=== PATIENT | male | born 1965 | race Caucasian/White ===

== ENCOUNTER → 2020-08-02 | Outpatient (CLI) | payer BC ==
[~2020-08-02] MED LIST: CEPH500C PO
--- NOTE | 2020-08-02 11:16 | Diagnostic Imaging Report ---
INDICATION: Left lower quadrant abdominal pain for 2 weeks. TIME OF EXAM: 10:40 AM The bowel gas pattern is nonobstructed. There is no free air. No pathologic calcifications are seen. IMPRESSION: No acute abnormality is detected. Dictated by: Dictated on workstation # [id number]
== END ==
LOC: RAD 10:14
PROVIDERS: ATTEND Family Medicine
DX: R10.32 Left lower quadrant pain (principal)
CPT/HCPCS: 74018

== ENCOUNTER → 2020-08-07 | Outpatient (CLI) | payer BC ==
[~2020-08-07] MED LIST changes: +FAMO10TA43 PO
--- NOTE | 2020-08-07 13:27 | Diagnostic Imaging Report ---
PROCEDURE: CT abdomen and pelvis without contrast. TECHNIQUE: Multiple contiguous axial images were obtained through the abdomen and pelvis without the use of intravenous contrast. Auto Exposure Controls were utilized during the CT exam to meet ALARA standards for radiation dose reduction. INDICATION: Left lower quadrant mass and pain. COMPARISON: No prior studies are available for comparison. FINDINGS: The lung bases are clear. The liver and gallbladder are unremarkable. No biliary ductal dilatation is seen. The pancreas and spleen are unremarkable. No adrenal mass is detected. Patient does have a pelvic right kidney which is unremarkable. Left kidney contains a low-density mass in the lower pole measuring 4.3 cm suggestive of a cyst. Aorta is nonaneurysmal. No central retroperitoneal or mesenteric lymphadenopathy is seen. There is marked wall thickening involving the left colon with surrounding pericolonic inflammation. A left colonic mass is suspected, resulting in significant luminal narrowing. No bowel obstruction is seen. Small bowel is normal caliber. Sigmoid is unremarkable. The bladder is unremarkable. Prostate is normal in size. No pelvic lymphadenopathy is seen. IMPRESSION: 1. Left renal cyst. 2. There is marked wall thickening and probable mass involving the mid descending colon. There is some surrounding inflammation and some underlying colitis is suspected. There is no bowel obstruction. There is no abscess formation or free air. Correlation with endoscopy would be recommended. Dictated by: Dictated on workstation # [id number]
== END ==
LOC: RAD 11:41
PROVIDERS: ATTEND Family Medicine
DX: N28.1 Cyst of kidney, acquired (principal); R19.04 Left lower quadrant abdominal swelling, mass and lump
CPT/HCPCS: 74176

== ENCOUNTER 2020-08-09 09:54 | Outpatient (CLI) | payer BC ==
[~2020-08-09] VITALS: Ht 195.6 cm; Wt 119.5 kg
[~2020-08-09 09:54] MED LIST changes: -FAMO10TA43 PO
[2020-08-09] MEDS ORDERED: FAMO10TA43 PO (11:10)
== END 2020-08-09 11:11 | disposition home or self-care (01) ==
LOC: PREOP 09:54
PROVIDERS: ATTEND Surgery
DX: Z01.818 Encounter for other preprocedural examination (principal)

== ENCOUNTER 2020-08-10 09:51 | Day surgery (SDC) | payer BC ==
[~2020-08-10] VITALS: Ht 195.6 cm; Wt 119.5 kg
[~2020-08-10 09:51] MED LIST changes: +FAMO10TA43 PO
[2020-08-10] MEDS ORDERED: LACTATED RINGERS 1,000 ML IV STA (09:55)
[2020-08-10] MEDS ORDERED: LACTATED RINGERS 1,000 ML IV ONE (09:57)
[2020-08-10 10:10] VITALS: BP 155/94
[2020-08-10] MEDS ORDERED: MIDAZOLAM 2 MG/2 ML (VERSED) VIAL ONE (10:24)
[2020-08-10] MEDS ORDERED: PROPOFOL INJECTION 50 ML IV ONE (10:24)
--- NOTE | 2020-08-10 10:30 | Progress Note-Pre Operative ---
Pre-Operative Progress Note H&P Reviewed The H&P was reviewed, patient examined and no changes noted. Date Seen by Provider: Aug 10, 2020 Time Seen by Provider: 10: Date H&P Reviewed: Aug 10, 2020 Time H&P Reviewed: 10:30 Pre-Operative Diagnosis: LLQ abd pain, llq mass BENJI SAINI DO Aug 10, 2020 10:30
[2020-08-10 10:50] VITALS: BP 120/60
[2020-08-10 10:55] VITALS: BP 96/60
[2020-08-10 11:00] VITALS: BP 121/58
--- NOTE | 2020-08-10 11:05 | Discharge Inst-Simple/Standard ---
Discharge Inst-Standard Patient Instructions/Follow Up Plan of Care/Instructions/FU: Friday Alfie Activity as Tolerated: Yes Discharge Diet: Regular Diet BNEJI SAINI DO Aug 10, 2020 11:05
--- NOTE | 2020-08-10 11:07 | Progress Note-Post Operative ---
Post-Operative Progess Note Surgeon (s)/Coal Pulverizing Operator (s) Surgeon BENJI SAINI DO Coal Pulverizing Operator: na Pre-Operative Diagnosis LLQ abd pain, llq mass Post-Operative Diagnosis descending colon mass, sigmoid polyp Procedure & Operative Findings Date of Procedure 08/10/20 Procedure Performed/Findings limited colonoscopy with biopsy descending colon mass, marissa inking distal to mass, hot bx polypectomy sigmoid polyp Anesthesia Type per counter manager Estimated Blood Loss Estimated blood loss (mL): scant Specimens/Packing Specimens Removed colon mass biopsies, sigmoid polyp BENJI SAINI DO Aug 10, 2020 11:07
[2020-08-10 11:25] VITALS: BP 167/109
[2020-08-10 11:35] VITALS: BP 167/109
--- NOTE | 2020-08-10 15:16 | Anesthesia-General Post-Op ---
MAC Patient Condition Mental Status/LOC: Same as Preop Cardiovascular: Satisfactory Nausea/Vomiting: Absent Respiratory: Satisfactory Pain: Controlled Complications: Absent Post Op Complications Complications None Follow Up Care/Instructions Patient Instructions None needed. Anesthesiology Discharge Order Discharge Order Patient is doing well, no complaints, stable vital signs, no apparent adverse anesthesia problems. No complications reported per nursing. RAMON MCCANN CRNA Aug 10, 2020 15:16
--- NOTE | 2020-08-11 02:20 | OPERATIVE REPORT ---
DATE OF SERVICE: 08/10/2020 PREOPERATIVE DIAGNOSIS: Left lower quadrant mass, left lower quadrant abdominal pain. POSTOPERATIVE DIAGNOSIS: Descending colon mass, sigmoid colon polyp. PROCEDURE: Limited colonoscopy with cold biopsy of the ascending colon mass with Jaclyn inking and hot biopsy polypectomy of sigmoid polyp. SURGEON: Benji Judge DO ANESTHESIA: Per WIND TUNNEL TECHNICIAN. ESTIMATED BLOOD LOSS: Scant. COMPLICATIONS: None. INDICATIONS: The patient is a 54-year-old male who has been having left lower quadrant abdominal pain. He had a CT scan demonstrating descending colon mass. He understands risks and benefits of procedure and wished to proceed with procedure. Consent was signed in the chart. DESCRIPTION OF PROCEDURE: The patient was taken to the endoscopy suite, placed in left lateral recumbent position. Timeout was performed. Digital rectal exam was performed. No palpable polyps, masses or ulcerations. Scope was inserted in the rectum and advanced all the way through the rectum, sigmoid and into the descending colon noting an almost obstructing mass of the colon. Scope was then able to be passed through this area. Multiple cold biopsies were obtained. Just distal to this area, 2 mL of Jaclyn ink were inserted into the colon wall for marking. Scope was then slowly retracted back. No polyps, masses or ulcerations within the remainder of the descending colon. In the sigmoid colon, a small polyp was present, which hot biopsy polypectomy was performed. Scope was then continuously retracted back into the rectum where it was also retroflexed noting no other pathology. The patient tolerated procedure well without any complications, taken to recovery room in stable condition. RECOMMENDATIONS: The patient will need a colon resection. We will await biopsies and we will see on Friday. Any issues before that will be seen at that time. Job ID: [id number] DocumentID: [id number] Dictated Date: 08/10/2020 15:22:46 Supervisor Building Maintenance Date: 08/11/2020 02:19:58 Dictated By: BENJI JUDGE DO
== END 2020-08-10 11:35 | disposition home or self-care (01) ==
LOC: SDC 09:51
PROVIDERS: ATTEND Surgery
DX: K63.5 Polyp of colon (principal); C18.6 Malignant neoplasm of descending colon; K21.9 Gastro-esophageal reflux disease without esophagitis; E66.9 Obesity, unspecified; Z68.31 Body mass index [BMI] 31.0-31.9, adult; Z79.899 Other long term (current) drug therapy; Z88.2 Allergy status to sulfonamides; Z87.891 Personal history of nicotine dependence; Z80.9 Family history of malignant neoplasm, unspecified

== ENCOUNTER 2020-08-14 09:58 | Outpatient (CLI) | payer BC ==
[~2020-08-14] VITALS: Ht 195 cm; Wt 119.0 kg
[~2020-08-14 09:58] MED LIST changes: -DIPH25TA65 PO; -IBUP-2473 PO; -MULT-1136 PO
== END 2020-08-14 14:35 | disposition home or self-care (01) ==
LOC: PREOP 09:58
PROVIDERS: ATTEND Surgery
DX: Z01.818 Encounter for other preprocedural examination (principal)

== ENCOUNTER → 2020-08-14 | Outpatient (CLI) | payer BC ==
[~2020-08-14] MED LIST changes: +DIPH25TA65 PO; +IBUP-2473 PO; +MULT-1136 PO
--- NOTE | 2020-08-14 10:55 | Diagnostic Imaging Report ---
INDICATION: Preop for colon surgery. Time of exam 10:29 AM No prior studies are available for comparison. The heart size is normal. The pulmonary vascularity is unremarkable. The lungs are clear. No infiltrate, effusion or pneumothorax is detected. Impression: No acute cardiopulmonary process is detected. Dictated by: Dictated on workstation # [id number]
== END ==
LOC: RAD 09:51
PROVIDERS: ATTEND Surgery
DX: Z01.818 Encounter for other preprocedural examination (principal); C18.9 Malignant neoplasm of colon, unspecified
CPT/HCPCS: 36415; 71046; 82378

== ENCOUNTER 2020-08-16 06:01 | Inpatient (IN) | payer BC ==
[~2020-08-16] VITALS: Ht 195 cm; Wt 119.8 kg
[2020-08-16] VITALS (12 sets, daily range): BP systolic 113–145; BP diastolic 70–87
[2020-08-16] MEDS ORDERED: metroNIDAZOLE 500MG/100ML IVPB 100 ML IV ONE (06:15)
[2020-08-16] MEDS ORDERED: ceFAZolin 2 GM IV Premixed 50 ML IV ONE (06:15)
[2020-08-16] MEDS: LACTATED RINGERS 1,000 ML IV PRN ×3 (06:30→10:01)
[2020-08-16 06:44] LABS: BASOPHILS # (AUTO) 0.1 10^3/uL (0.0-0.1); BASOPHILS % (AUTO) 1 % (0-10); EOSINOPHILS % (AUTO) 11 % (0-10); HEMATOCRIT 45 % (40-54); HEMOGLOBIN 14.2 g/dL (13.3-17.7); LYMPHOCYTES # (AUTO) 1.3 10^3/uL (1.0-4.0); LYMPHOCYTES % (AUTO) 14 % (12-44); MEAN CORPUSCULAR HEMOGLOBIN 26 pg (25-34); MEAN CORPUSCULAR HGB CONC 32 g/dL (32-36); MEAN CORPUSCULAR VOLUME 82 fL (80-99); MEAN PLATELET VOLUME 8.7 fL (9.0-12.2); MONOCYTES # (AUTO) 0.7 10^3/uL (0.0-1.0); MONOCYTES % (AUTO) 7 % (0-12); NEUTROPHILS # (AUTO) 6.2 10^3/uL (1.8-7.8); NEUTROPHILS % (AUTO) 67 % (42-75); PLATELET COUNT 351 10^3/uL (130-400); WHITE BLOOD COUNT 9.3 10^3/uL (4.3-11.0)
[2020-08-16] MEDS ORDERED: BUP/EPI 0.25% 1:200,000 (MARCAINE) 30 ML VIAL ONE (07:20)
[2020-08-16] MEDS ORDERED: fentaNYL INJECTION 100 MCG/2 ML AMP ONE ×2 (07:26→09:38)
[2020-08-16] MEDS ORDERED: metroNIDAZOLE 500MG/100ML IVPB 100 ML ONE (07:26)
[2020-08-16] MEDS ORDERED: proPOfol 200 MG/20 ML (DIPRIVAN) VIAL IV ONE (07:26)
[2020-08-16] MEDS ORDERED: LIDOCAINE PF 2% 5 ML (XYLOCAINE) VIAL ONE (07:26)
[2020-08-16] MEDS ORDERED: MIDAZOLAM 2 MG/2 ML (VERSED) VIAL ONE (07:26)
[2020-08-16] MEDS ORDERED: ceFAZolin 2 GM IV Premixed 50 ML ONE (07:26)
[2020-08-16] MEDS ORDERED: ONDANSETRON 4 MG/2 ML (SDV) Z0FRAN ONE ×2 (07:27→13:06)
[2020-08-16] MEDS ORDERED: SEVOFLURANE (ULTANE) 15 ML INHAL SOLN ONE (07:27)
[2020-08-16] MEDS ORDERED: ROCURONIUM 10 MG/ML 5 ML SYRINGE IV ONE ×5 (07:27→11:28)
[2020-08-16] MEDS ORDERED: CATHETER FLUSH 10 ML SYR IV PRN (07:30)
[2020-08-16] MEDS ORDERED: HYDROmorphone 2 MG/ML VIAL (DILAUDID) ONE ×2 (08:11→11:28)
--- NOTE | 2020-08-16 08:13 | Progress Note-Pre Operative ---
Pre-Operative Progress Note H&P Reviewed The H&P was reviewed, patient examined and no changes noted. Date Seen by Provider: Aug 16, 2020 Time Seen by Provider: 07:40 Date H&P Reviewed: Aug 16, 2020 Time H&P Reviewed: 07:40 Pre-Operative Diagnosis: descending colon cancer BENJI SAINI DO Aug 16, 2020 08:13
[2020-08-16] MEDS ORDERED: LEVOFLOXACIN 500 MG/100 ML IV 100 ML ONE (10:52)
[2020-08-16] MEDS ORDERED: LEVOFLOXACIN 500 MG/100 ML IV 100 ML IV ONE (11:00)
[2020-08-16] MEDS ORDERED: ROPIVACAINE 5MG/ML 30ML VIAL ONE (11:30)
[2020-08-16] MEDS ORDERED: GLYCOPYRROLATE 0.2 MG/ML (ROBINUL) 2 ML VIAL ONE (11:48)
[2020-08-16] MEDS ORDERED: NEOSTIGMINE 3 MG/3 ML VIAL ONE (11:48)
[2020-08-16] MEDS ORDERED: meTOprolol 5 MG/5 ML (LOPRESSOR) VIAL ONE (12:14)
--- NOTE | 2020-08-16 12:19 | Progress Note-Post Operative ---
Post-Operative Progess Note Surgeon (s)/Lodging Facilities Manager (s) Surgeon BENJI SAINI DO Lodging Facilities Manager: Dr. Lama Pre-Operative Diagnosis descending colon cancer Post-Operative Diagnosis same, colon cancer extentding into retroperitoneum Procedure & Operative Findings Date of Procedure 08/16/20 Procedure Performed/Findings lap hand assisted to open descending colon flexure with end to end anastamosis with excision of retroperitoneal extension of colon cancer, splenic flexure take down Anesthesia Type general Estimated Blood Loss Estimated blood loss (mL): 200 mL Specimens/Packing Specimens Removed descending colon, retroperitoneal colon cancer, anastomotic rings BENJI SAINI DO Aug 16, 2020 12:19
[2020-08-16] MEDS ORDERED: HYDROmorphone 2 MG/ML VIAL (DILAUDID) IV ONE (12:30)
[2020-08-16] MEDS ORDERED: ONDANSETRON 4 MG/2 ML (SDV) Z0FRAN IVP PRN (12:30)
--- NOTE | 2020-08-16 13:20 | NUR ---
PATIENT TO FLOOR AT THIS TIME VIA CART. IN ROOM WAITING AT BESIDE OF THIS PATIENT. MIDLINE INCISION HAS MODERATE AMOUNT OF DRAINAGE WITH THAT AREA MARKED BY THIS RN. ICE TO MIDLINE INCISION. X1 LAP SITE TO THE LEFT LOWER QUADRANT THAT IS COVERED WITH OPSITE AND DRAINAGE MARKED ALSO BY THIS RN.
[2020-08-16] MEDS: LACTATED RINGERS 1,000 ML IV SCH ×2 (13:49→21:08)
--- NOTE | 2020-08-16 15:22 | Physical Therapy Evaluation ---
PT Evaluation-General Medical Diagnosis Admission Date Aug 16, 2020 at 06:01 Medical Diagnosis: Descending colon cancer Onset Date: Aug 16, 2020 Therapy Diagnosis Therapy Diagnosis: Impaired mobility, ROM, and strength Height/Weight Height (Feet): 6 Height (Inches): 0 Weight (Pounds): 230 Precautions Precautions/Isolations: Standard Precautions Weight Bear Status Weight Bearing/Tolerated Weight Bearing/Tolerated Referral Physician: Kelby Reason for Referral: Evaluation/Treatment Medical History Additional Medical History Descending colon cancer Social History Home: Single Level Current Living Status: Spouse Entry Into Home: Stairs With Railing PT Steps Into Home: 4 Prior Prior Level of Function SCALE: Activities may be completed with or without assistive devices. 6-Klzhdfwqrh-yhunyuj completes the activity by him/herself with no assistance from a helper. 5-Set-up or Clean-up Assistance-helper sets up or cleans up; patient completes activity. Bloomery assists only prior to or following the activity. 4-Supervision or Touching Assistance-helper provides verbal cues and/or touching/steadying and/or contact guard assistance as patient completes activity. Assistance may be provided throughout the activity or intermittently. 3-Partial/Moderate Assistance-helper does LESS THAN HALF the effort. Bloomery lifts, holds or supports trunk or limbs, but provides less than half the effort. 2-Substantial/Maximal Assistance-helper does MORE THAN HALF the effort. Bloomery lifts or holds trunk or limbs and provides more than half the effort. 1-Jognifilc-kodnyp does ALL the effort. Patient does none of the effort to complete the activity. Or, the assistance of 2 or more helpers is required for the patient to complete the activity. If activity was not attempted, code reason: 7-Patient Refused. 9-Not Applicable-not attempted and the patient did not perform the activity before the current illness, exacerbation or injury. 10-Not Attempted due to Environmental Limitations-(lack of equipment, weather restraints, etc.). 88-Not Attempted due to Medical Conditions or Safety Concerns. Bed Mobility: 6 Transfers (B,C,W/C): 6 Gait: 6 Stairs: 6 Wheelchair Mobility: 9 Indoor Mobility (Ambulation): Independent Stairs: Independent Prior Devices Use: None PT Evaluation-Current Subjective Pt presents supine in bed. Pt agrees to PT. Pt has unrated pain in his abdomen. Pt/Family Goals Return Home Objective Patient Orientation: Person, Place, Eyes Open Attachments: Jansen Catheter, IV ROM/Strength ROM Lower Extremities WFL Strength Lower Extremities R Hip flex: 4/5 with increased abdominal pain L Hip flex: 5/5 B knee flex/ext: 5/5 Sensory Hearing: Functional Sensation Right Lower Extremit: Intact Sensation Left Lower Extremity: Intact Sensation Lower Extremities B LE sensation intact to light touch L2-S2 Transfers Roll Left to Right (QC): 4 Sit to Lying (QC): 4 Lying to Sitting/Side of Bed(Q: 4 Pt educated on log-roll Balance Sitting Static: Normal Sitting Dynamic: Normal Treatment B ankle pumps, SLR, quad sets, glute sets x20 Assessment/Needs Pt required cues on how to sit on edge of bed using log-roll technique to minimize abdominal irritation. Pt able to balance self sitting upright with UEs supporting trunk by locking elbows behind him. Pt began feeling dizzy sitting up after a couple minutes and returned to supine. Rehab Potential: Fair PT Snf Goals Snf Goals PT Information Security Officer Goals Time Frame: Aug 23, 2020 Roll Left & Right (QC): 6 Sit to Lying (QC): 6 Lying-Sitting on Side/Bed(QC): 6 Sit to Stand (QC): 6 Chair/Gsr-oe-Ngtni Xfer(QC): 6 Walk 10 feet (QC): 6 Walk 50ft with 2 Turns (QC): 6 Walk 150 ft (QC): 6 PT Plan Problem List Problem List: Activity Tolerance, Functional Strength, Safety, Balance, Gait, Transfer, Bed Mobility, ROM Treatment/Plan Treatment Plan: Continue Plan of Care Treatment Plan: Bed Mobility, Education, Functional Activity Jose, Functional Strength, Gait, Safety, Therapeutic Exercise, Transfers Treatment Duration: Aug 23, 2020 Frequency: 6 times per week Estimated Hrs Per Day: .25 hour per day Patient and/or Family Agrees t: Yes Safety Risks/Education Patient Education: Transfer Techniques, Correct Positioning, Safety Issues Teaching Recipient: Patient Teaching Methods: Demonstration, Discussion Response to Teaching: Reinforcement Needed Discharge Recommendations Plan Plan to work with patient on bed mobility, transfers, balance, gait training, LE strengthening and ROM. Time/GCodes Time In: 1450 Time Out: 1511 Total Billed Treatment Time: 21 Total Billed Treatment 1 visit EVBERNARDA CARRASQUILLO PT Aug 16, 2020 15:22
[2020-08-16] MEDS ORDERED: DIPH25TA65 PO (15:31)
[2020-08-16] MEDS ORDERED: IBUP-2473 PO (15:31)
[2020-08-16] MEDS ORDERED: MULT-1136 PO (15:31)
--- NOTE | 2020-08-16 15:33 | NUR ---
SPOKE WITH THE PT TO COMPLETE THE MED REC PT DENIES TAKING ANY PRESCRIPTION MEDICATION OTC MEDS: PEPCID IBUPROFEN LYUBOV HOUGH
[2020-08-16] MEDS ORDERED: RT-ALBUTEROL SULF 2.5 MG/3 ML PRE-MIX VIAL INH PRN (16:00)
--- NOTE | 2020-08-16 16:06 | NUR ---
DR. DUPONT HERE AT THIS TIME TO CONSULT WITH PATIENT.
[2020-08-16] MEDS: ceFAZolin 2 GM IV Premixed 50 ML IV SCH (16:14)
[2020-08-16] MEDS: metroNIDAZOLE 500MG/100ML IVPB 100 ML IV SCH (16:14)
--- NOTE | 2020-08-16 16:46 | Consultation ---
History of Present Illness History of Present Illness Patient Consulted On(dada/time) 08/16/20 16:43 Date Seen by Provider: Aug 16, 2020 Time Seen by Provider: 16:40 Reason for Visit: medical management History of Present Illness 54-year-old male recently presented to my office for wellness examination at that time history revealed that he had some change of his bowel habits. He was noted to have narrow stools as well as having discomfort in the lower abdomen. He was also noted to have a firm 10 x 15 cm area in the left lower quadrant. He was arranged to have colonoscopy with Dr. Judge and ultimately found to have adenocarcinoma by biopsy. Today he underwent surgical excision of the tumor Allergies and Home Medications Allergies Coded Allergies: Sulfa (Sulfonamide Antibiotics) (Verified Allergy, Mild, HIVES, 08/16/20) Home Medications Diphenhydramine HCl 25 Mg Tablet, 25-50 MG PO Q6H PRN for ALLERGY SYMPTOMS, (Reported) Famotidine 10 Mg Tablet, 10 MG PO DAILY PRN for HEARTBURN, (Reported) Ibuprofen 200 Mg Tablet, 400 MG PO Q8H PRN for PAIN-MILD (1-4), (Reported) Multivitamin 1 Each Tablet, 1 EACH PO DAILY, (Reported) Patient Home Medication List Home Medication List Reviewed: Yes Past Rlxdaoh-Rrlgcv-Dtghsx Hx Patient Social History Alcohol Use: Denies Use Number of Drinks Today: FF Alcohol Beverage of Choice: Vodka Recreational Drug Use: No Type Used: Smokeless Tobacco Former Smoker, Quit: Aug 09, 1998 2nd Hand Smoke Exposure: No Recent Foreign Travel: No Contact w/Someone Who Travel: No Recent Infectious Disease Expo: No Recent Hopitalizations: No Immunizations Up To Date Tetanus Booster (TDap): Less than 5yrs PED Vaccines UTD: No Seasonal Allergies Seasonal Allergies: Yes Past Medical History Surgeries: Yes Appendectomy Respiratory: No Currently Using CPAP: No Currently Using BIPAP: No Cardiac: No Neurological: No Reproductive Disorders: No Sexually Transmitted Disease: No Genitourinary: No Gastrointestinal: Yes (abd pain) Gastroesophageal Reflux Musculoskeletal: No Endocrine: No HEENT: No Cancer: No Psychosocial: No Integumentary: No Blood Disorders: No Adverse Reaction/Blood Tranf: No (N/A) Family Medical History Patient reports no known family medical history. Review of Systems-General Constitutional: see HPI Physical Exam-General Problems Physical Exam Vital Signs Vital Signs - First Documented 08/16/20 08/16/20 06:15 14:17 Temp 36.2 Pulse 99 Resp 18 B/P (MAP) 145/87 (106) Pulse Ox 97 O2 Delivery Room Air FiO2 32 Capillary Refill : Less Than 3 Seconds General Appearance: mild distress (but he is with pain medications on board after surgery) Neck: non-tender Respiratory: lungs clear (but shallow breaths) Cardiovascular: regular rate, rhythm Gastrointestinal: soft, other (he is with surgical dressings in place) Rectal: deferred Extremities: normal inspection, normal capillary refill Neurologic/Psychiatric: parks recreation coordinator II-XII nml as tested, alert, oriented x 3 Skin: normal color (although he is slightly pale) Assessment/Plan Assessment/Plan Admission Diagnosis/Plan 1. 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 Dyspepsia history of -PPI as indicated Admission Status: Inpatient Order (span 2 midnights) Reason for Inpatient Admission: patient underwent surgical excision of tumor by Dr. Judge today. Clinical Quality Measures DVT/VTE Risk/Contraindication: Risk Factor Score Per Nursin RFS Level Per Nursing on Admit: 4+=Very High GABY LOBO MD Aug 16, 2020 16:46
--- NOTE | 2020-08-16 17:21 | Oncology Consultation ---
Visit Information Visit Information Date of Admission Aug 16, 2020 at 06:01 Attending Physician Stefan Judge DO Admitting Physician Herrera Ledbetter MD Chief Complaint Newly diagnosed colon cancer Interval History Mr. Chen is a 54 year old white man presented to his PCP Dr. Ledbetter for bowel change and lower abdominal pain. Dr Judge did a colonoscopy with biopsy which showed adenocarcinoma. CT scan was negative for remote mets 08/07/2020. Dr Judge did a left hemicolectomy today and noticed retroperitoneal lymph nodes involvement. Pt is now recovering from the surgical procedure. I consulted the patient on: 08/16/20 17:15 Time Seen by Provider: 15:50 Review of Systems Constitutional: no symptoms reported EENTM: no symptoms reported Respiratory: no symptoms reported Cardiovascular: no symptoms reported Gastrointestinal: abdominal pain Musculoskeletal: no symptoms reported Psychiatric/Neurological: No Symptoms Reported Health Status Allergies Coded Allergies: Sulfa (Sulfonamide Antibiotics) (Verified Allergy, Mild, HIVES, 08/16/20) Home Medications Diphenhydramine HCl (Benadryl Allergy) 25 Mg Tablet, 25-50 MG PO Q6H PRN for ALLERGY SYMPTOMS, (Reported) Famotidine (Pepcid AC) 10 Mg Tablet, 10 MG PO DAILY PRN for HEARTBURN, (Reported) Ibuprofen (Ibuprofen) 200 Mg Tablet, 400 MG PO Q8H PRN for PAIN-MILD (1-4), (Reported) Multivitamin (Multivitamin) 1 Each Tablet, 1 EACH PO DAILY, (Reported) IXY-Swphcf-Kwqnzh Hx Patient Social History Alcohol Use: Denies Use Recreational Drug Use: No Type Used: Smokeless Tobacco 2nd Hand Smoke Exposure: No Recent Foreign Travel: No Contact w/other who traveled: No Recent Infectious Disease Expo: No Recent Hopitalizations: No Physical Abuse Screen: No Sexual Abuse: No Immunizations Up To Date Tetanus Booster (TDap): Less than 5yrs Family Medical History Family History: Patient reports no known family medical history. Physical Exam Vital Signs Vital Signs - First Documented 08/16/20 08/16/20 06:15 14:17 Temp 36.2 Pulse 99 Resp 18 B/P (MAP) 145/87 (106) Pulse Ox 97 O2 Delivery Room Air FiO2 32 Capillary Refill : Less Than 3 Seconds Height, Weight, BMI Height: 6'0" Weight: 230lbs. oz. 104.860333ht; 31.29 BMI Method:Stated General Appearance: No Apparent Distress HEENT: PERRL/EOMI Respiratory: No Accessory Muscle Use, No Respiratory Distress Cardiovascular: Regular Rate, Rhythm Gastrointestinal: Distended, Tenderness Neurologic/Psychiatric: Alert, Oriented x3 Data Review Labs Laboratory Tests 08/16/20 06:30 Laboratory Tests 08/16/20 06:30: Red Cell Distribution Width 15.5H, Mean Platelet Volume 8.7L, Eosinophils (%) (Auto) 11H, Eosinophils # (Auto) 1.0H Impression & Plan Impression & Plan IMP: 1. 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 Final path pending. 2. CT 08/07/2020 showed no remote mets. Most likely stage II or III. Most likely needing chemotherapy. Plan: 1. f/u final pathology to determine the lymph node involvement 2. Pt needs to recover and heal from the surgery 3. See me in 3 weeks at the cancer center to discuss the final staging and treatment options. I have given him the appointment card with date and time. Will sign off now. Thank you for the consultation. POLLY DUPONT MD Aug 16, 2020 17:21
--- NOTE | 2020-08-16 20:32 | OPERATIVE REPORT ---
DATE OF SERVICE: 08/16/2020 PREOPERATIVE DIAGNOSIS: Colon cancer. POSTOPERATIVE DIAGNOSIS: Colon cancer. OPERATION PERFORMED: Cystoscopy and insertion of left ureteral stent. SURGEON: Braxton Clinton MD. ANESTHESIA: General. COMPLICATIONS: None. DESCRIPTION OF PROCEDURE: I was asked by Dr. Judge to come into the operating room and put in a stent in the left ureter because of its proximity to an eroding cancer colon and fear of injuring the ureter and help identification of it, so the patient was put in the lithotomy position, genitalia were prepped and draped in the usual sterile fashion. Cystoscopy was performed and the left ureteral orifice was visualized. A 6-Singaporean ureteral catheter was inserted and passed all the way up to the kidney with recovery of clear urine from it. The cystoscope was removed. A Jansen catheter was inserted and both catheters were connected with appropriate connections and then Dr. Judge and Dr. Lama proceeded with the rest of the surgery that they will dictate. I told Dr. Judge that I will stick around in the hospital in case he needs me again for any other reasons related to the ureter. Job ID: [id number] DocumentID: [id number] Dictated Date: 08/16/2020 11:39:57 Psychiatric Nursing Aide Date: 08/16/2020 15:45:57 Dictated By: BRAXTON CLINTON MD
[2020-08-16] MEDS: morphine INJ 10 MG/ML 1ML (SYR OR VIAL) IVP PRN (21:08)
[2020-08-17 00:39] VITALS: BP 112/61
[2020-08-17] MEDS: ceFAZolin 2 GM IV Premixed 50 ML IV SCH (01:55)
[2020-08-17] MEDS: metroNIDAZOLE 500MG/100ML IVPB 100 ML IV SCH (01:55)
[2020-08-17] MEDS: morphine INJ 10 MG/ML 1ML (SYR OR VIAL) IVP PRN ×4 (02:54→14:05)
--- NOTE | 2020-08-17 03:13 | OPERATIVE REPORT ---
DATE OF SERVICE: 08/16/2020 PREOPERATIVE DIAGNOSIS: Descending colon cancer. 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 PROCEDURE: Laparoscopic hand-assisted converted to open descending colon resection with end-to-end anastomosis and retroperitoneal colon cancer excision and splenic flexure takedown. SURGEON: Benji Judge DO STATOR TESTER: Dr. Lama, assisted in retraction, dissection and closure. Dr. Beckett, see his dictation for left ureteral catheter. ANESTHESIA: General. ESTIMATED BLOOD LOSS: 200 mL. COMPLICATIONS: None. INDICATIONS: The patient is a 54-year-old male who was having left lower quadrant abdominal pain, found to have a mass by CT scan. A colonoscopy was performed, which found a descending colon mass that was almost completely obstructing, the scope was unable to be passed through this area. The mass was biopsied, which demonstrated colon cancer. The patient was explained risks and benefits of procedure and wished to proceed. Consent was signed in the chart. DESCRIPTION OF PROCEDURE: The patient was taken to the operating suite, was prepped and draped in sterile fashion. Timeout was performed. A midline incision was made for the hand port around the umbilicus and a 12 mm incision was made in the subxiphoid region and a 12 mm trocar was placed. The abdomen was then insufflated after the hand port was placed. Under direct visualization, a 5 mm trocar was placed in left lower quadrant. The mass was visualized. There were some adhesions at the mass to the abdominal wall, which were transected using a spatula cautery. Distal to the mass, the colon was then mobilized along the white line of Toldt. Mass was hard, firm mass, which was extremely adherent to the left gutter, so dissection on the proximal side was then continued on the part of the colon that was movable. The colon was mobilized along the white line of Toldt and the splenic flexure was taken down as well. Attention was then made to where the colon mass was extremely adherent to the left gutter, which was unable to be mobilized laparoscopically therefore then the procedure was converted to an open procedure. The distal to the mass, the colon was dissected around and a LESLYE stapler was fired. Proximal to the mass the colon was dissected around and a LESLYE staple reload was then fired across. LigaSure was then used to start taking the mesentery; however, the mass was significantly fixed to the left gutter and retroperitoneum and the mesentery was felt to be hard as this mass was moving down into this area or significant phlegmon around it. Therefore, the colon was continued to be both bluntly and cautery dissection. In doing so, part of the mass and the colon were divided with finger fracturing and the specimen was removed. Where the mass was, there was extension into the retroperitoneum. Due to this going into the retroperitoneal space, Dr. Beckett came in and placed a left ureteral catheter. The retroperitoneum was then opened and the mass was continued to be slowly dissected around with Hoffman and cautery, removing this en bloc. Specimen was labeled on the colon. The stitches on the proximal portion with the tattooing being distal. The retroperitoneal mass was tagged and oriented as well. The abdomen was then irrigated with copious amounts of irrigation. Hemostasis was achieved. A pursestring suture was then fired across the distal portion of the colon and a 31 EEA stapler anvil was inserted. This was then tied and through the proximal transected portion of the colon this was opened and the EEA stapler was inserted and opened and the end-to-end anastomosis was created through the opening. The opening was then closed with the linear stapler reload. The suture line was oversewn with 3-0 Vicryls. The abdomen was then irrigated with copious amounts of irrigation and suction. The fascia was then closed using 1-0 looped PDS. The abdominal wound was then irrigated and skin was then closed with veronica. The left ureteral catheter was removed. The patient tolerated procedure well without any complications. He was taken to recovery room in stable condition. Job ID: [id number] DocumentID: [id number] Dictated Date: 08/16/2020 23:01:24 Volunteer Assistant Date: 08/17/2020 03:12:35 Dictated By: BENJI JUDGE DO
[2020-08-17 03:53] VITALS: BP 127/76
[2020-08-17 04:56] LABS: HEMOGLOBIN 12.6 g/dL (13.3-17.7); MEAN PLATELET VOLUME 8.9 fL (9.0-12.2); WHITE BLOOD COUNT 10.6 10^3/uL (4.3-11.0)
[2020-08-17 05:23] LABS: ALBUMIN 3.2 GM/DL (3.2-4.5); CHLORIDE 105 MMOL/L (98-107); POTASSIUM 4.4 MMOL/L (3.6-5.0); SODIUM 142 MMOL/L (135-145)
[2020-08-17 05:24] LABS: CALCIUM 8.6 MG/DL (8.5-10.1)
[2020-08-17 05:25] LABS: GLUCOSE 147 MG/DL (70-105)
[2020-08-17 05:26] LABS: TOTAL PROTEIN 5.9 GM/DL (6.4-8.2)
[2020-08-17 05:27] LABS: BILIRUBIN,TOTAL 0.5 MG/DL (0.1-1.0); CARBON DIOXIDE 26 MMOL/L (21-32)
[2020-08-17 05:29] LABS: ALKALINE PHOSPHATASE 46 U/L (40-136); CREATININE SERUM 0.93 MG/DL (0.60-1.30); GFR ESTIMATED > 60
[2020-08-17 05:30] LABS: BUN/CREATININE RATIO 8
[2020-08-17 05:32] LABS: ALANINE AMINOTRANSFERASE 13 U/L (0-55); MAGNESIUM 1.7 MG/DL (1.6-2.4)
[2020-08-17] MEDS: LACTATED RINGERS 1,000 ML IV SCH ×3 (06:21→20:39)
--- NOTE | 2020-08-17 06:40 | Progress Note ---
Subjective Date Seen by a Provider: Aug 17, 2020 Time Seen by a Provider: 06:50 Subjective/Events-last exam Patient awake upon entering room and appears to be in no distress. He reports still fairly tender with regards to abdomen. He is without any respiratory distress or cough. Objective Exam Vital Signs Date Time Temp Pulse Resp B/P (MAP) Pulse Ox O2 Delivery O2 Flow Rate FiO2 08/17/20 03:53 36.7 87 16 127/76 (93) 96 Room Air 08/16/20 21:00 Room Air 08/16/20 20:46 Nasal Cannula 3.00 08/16/20 20:00 37.0 83 16 136/73 (94) 98 Room Air 08/16/20 15:57 36.2 96 22 122/71 (88) 96 Room Air 08/16/20 14:30 36.1 99 16 135/84 (101) 95 Room Air 08/16/20 14:23 95 Nasal Cannula 3.00 08/16/20 14:17 36.1 91 95 32 08/16/20 13:20 Nasal Cannula 3 08/16/20 13:20 95 Nasal Cannula 3.00 08/16/20 13:20 36.1 24 128/72 (90) 96 Nasal Cannula 3 08/16/20 13:10 26 128/70 (89) 99 OxyMask 3 08/16/20 13:05 OxyMask 3 08/16/20 13:00 24 123/72 (89) 97 OxyMask 3 08/16/20 12:50 OxyMask 5 08/16/20 12:50 24 113/80 (91) 96 OxyMask 5 08/16/20 12:40 26 118/77 (91) 98 OxyMask 5 08/16/20 12:35 OxyMask 10 08/16/20 12:30 26 116/80 (92) 98 OxyMask 10 08/16/20 12:22 OxyMask 10 08/16/20 12:22 36.1 18 114/76 (89) 96 OxyMask 10 I & O 08/17/20 07:00 Intake Total 2250 ml Output Total 1375 ml Balance 875 ml Capillary Refill : Less Than 3 SecondsLess Than 3 Seconds General Appearance: No Apparent Distress Respiratory: Lungs Clear Cardiovascular: Regular Rate, Rhythm Extremity: Normal Capillary Refill Results Lab Laboratory Tests 08/17/20 04:35: White Blood Count 10.6, Red Blood Count 4.82, Hemoglobin 12.6L, Hematocrit 41, Mean Corpuscular Volume 84, Mean Corpuscular Hemoglobin 26, Mean Corpuscular Hemoglobin Concent 31L, Red Cell Distribution Width 15.9H, Platelet Count 301, Mean Platelet Volume 8.9L, Sodium Level 142, Potassium Level 4.4, Chloride Level 105, Carbon Dioxide Level 26, Anion Gap 11, Blood Urea Nitrogen 7, Creatinine 0.93, Estimat Glomerular Filtration Rate > 60, BUN/Creatinine Ratio 8, Glucose Level 147H, Calcium Level 8.6, Corrected Calcium 9.2, Phosphorus Level 4.0, Magnesium Level 1.7, Total Bilirubin 0.5, Aspartate Amino Transf (AST/SGOT) 13, Alanine Aminotransferase (ALT/SGPT) 13, Alkaline Phosphatase 46, Total Protein 5.9L, Albumin 3.2 Assessment/Plan Assessment/Plan Assess & Plan/Chief Complaint 1. 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 2. Dyspepsia history of -PPI as indicated Clinical Quality Measures DVT/VTE Risk/Contraindication: Risk Factor Score Per Nursin RFS Level Per Nursing on Admit: 4+=Very High GABY LOBO MD Aug 17, 2020 06:40
--- NOTE | 2020-08-17 06:44 | Anesthesia-General Post-Op ---
General Patient Condition Mental Status/LOC: Same as Preop Cardiovascular: Satisfactory Nausea/Vomiting: Absent Respiratory: Satisfactory Pain: Controlled Complications: Absent Post Op Complications Complications None Follow Up Care/Instructions Patient Instructions None needed. Anesthesia/Patient Condition Patient Condition Patient is doing well, no complaints, stable vital signs, no apparent adverse anesthesia problems. No complications reported per nursing. RAMON MCCANN CRNA Aug 17, 2020 06:44
--- NOTE | 2020-08-17 07:49 | Progress Note - Surgery ---
ADEEL STEWART MED STUDENT 08/17/20 0749: Subjective Date Seen by a Provider: Aug 17, 2020 Time Seen by a Provider: 06:55 Subjective/Events-last exam See states his pain is currently a 4/10 but he just had morphine. States it moves up to 8 or 9 /10 without morphine, and that he has needed it every 2 hours or so. States he used spirometry each time he woke up last night, 3x total. Denies passing gas or stool. His pain is worse with movement, jumped to 25/10 when adjusting himself in bed last night. States nausea for about 5 minutes when taking pain medications, no nausea otherwise. No fever, chills, chest pain, SOB, vomiting. Objective Exam Vital Signs Date Time Temp Pulse Resp B/P (MAP) Pulse Ox O2 Delivery O2 Flow Rate FiO2 08/17/20 03:53 36.7 87 16 127/76 (93) 96 Room Air 08/16/20 21:00 Room Air 08/16/20 20:46 Nasal Cannula 3.00 08/16/20 20:00 37.0 83 16 136/73 (94) 98 Room Air 08/16/20 15:57 36.2 96 22 122/71 (88) 96 Room Air 08/16/20 14:30 36.1 99 16 135/84 (101) 95 Room Air 08/16/20 14:23 95 Nasal Cannula 3.00 08/16/20 14:17 36.1 91 95 32 08/16/20 13:20 Nasal Cannula 3 08/16/20 13:20 95 Nasal Cannula 3.00 08/16/20 13:20 36.1 24 128/72 (90) 96 Nasal Cannula 3 08/16/20 13:10 26 128/70 (89) 99 OxyMask 3 08/16/20 13:05 OxyMask 3 08/16/20 13:00 24 123/72 (89) 97 OxyMask 3 08/16/20 12:50 OxyMask 5 08/16/20 12:50 24 113/80 (91) 96 OxyMask 5 08/16/20 12:40 26 118/77 (91) 98 OxyMask 5 08/16/20 12:35 OxyMask 10 08/16/20 12:30 26 116/80 (92) 98 OxyMask 10 08/16/20 12:22 OxyMask 10 08/16/20 12:22 36.1 18 114/76 (89) 96 OxyMask 10 I & O 08/17/20 07:00 Intake Total 2250 ml Output Total 2575 ml Balance -325 ml Capillary Refill : Less Than 3 SecondsLess Than 3 Seconds General Appearance: No Apparent Distress, WD/WN HEENT: PERRL/EOMI Neck: Full Range of Motion, Non Tender Respiratory: Lungs Clear, Normal Breath Sounds (lower lobes not auscultated), No Accessory Muscle Use, No Respiratory Distress Cardiovascular: Regular Rate, Rhythm, No Edema, No Gallop, No JVD, No Murmur, Normal Peripheral Pulses Gastrointestinal: No guarding, No rebound; other (he is with surgical dressings in place. Tenderness when approaching midline incisison dressing. Soft abdomen except some nontender hardness palpated RLQ. ) Extremity: Normal Capillary Refill, Normal Inspection Neurologic/Psychiatric: Alert, Oriented x3 Skin: Normal Color, Warm/Dry Lymphatic: No Adenopathy Results Lab Laboratory Tests 08/17/20 04:35: White Blood Count 10.6, Red Blood Count 4.82, Hemoglobin 12.6L, Hematocrit 41, Mean Corpuscular Volume 84, Mean Corpuscular Hemoglobin 26, Mean Corpuscular Hemoglobin Concent 31L, Red Cell Distribution Width 15.9H, Platelet Count 301, Mean Platelet Volume 8.9L, Sodium Level 142, Potassium Level 4.4, Chloride Level 105, Carbon Dioxide Level 26, Anion Gap 11, Blood Urea Nitrogen 7, Creatinine 0.93, Estimat Glomerular Filtration Rate > 60, BUN/Creatinine Ratio 8, Glucose Level 147H, Calcium Level 8.6, Corrected Calcium 9.2, Phosphorus Level 4.0, Magnesium Level 1.7, Total Bilirubin 0.5, Aspartate Amino Transf (AST/SGOT) 13, Alanine Aminotransferase (ALT/SGPT) 13, Alkaline Phosphatase 46, Total Protein 5.9L, Albumin 3.2 Assessment/Plan Assessment/Plan Assessment/Plan 1. 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 Dyspepsia history of -PPI as indicated Will remove Pollock catheter Encourage IS PT for movement pain control as needed goal to reduce frequency of pain medications monitor labs and vitals await return of bowel function Clinical Quality Measures DVT/VTE Risk/Contraindication: Risk Factor Score Per Nursin RFS Level Per Nursing on Admit: 4+=Very High BENJI SAINI DO 08/18/202032: Subjective Subjective/Events-last exam Pain is controlled if taking pain medication if moving, increases significantly. NPO. Using IS. Ambulating. Denies n/v fever sweats chills shortness of breaht or chest pain at this time. Objective Exam General Appearance: No Apparent Distress, WD/WN HEENT: PERRL/EOMI Neck: Full Range of Motion, Non Tender, Supple Respiratory: Chest Non Tender, No Accessory Muscle Use, No Respiratory Distress Cardiovascular: Regular Rate, Rhythm, No JVD Gastrointestinal: soft, tenderness (incisional, c/d/i), other Extremity: Normal Capillary Refill, Normal Inspection Neurologic/Psychiatric: Alert, Oriented x3 Skin: Normal Color, Warm/Dry Lymphatic: No Adenopathy Assessment/Plan Assessment/Plan Assessment/Plan s/p lap to open partial colon resection with excision of colon cancer exstending into retroperitoneum. start clears dc pollock lovenox for dvt/scd's prophylaxis ambulate Supervisory-Addendum Brief Verification & Attestation Participated in pt care: history, MDM, physical Personally performed: exam, history, MDM, supervision of care Care discussed with: Medical Student Procedures: n/a Results interpretation: Verified all documentation Verification and Attestation of Medical Student E/M Service A medical student performed and documented this service in my presence. I rev iewed and verified all information documented by the medical student and made modifications to such information, when appropriate. I personally performed the physical exam and medical decision making. Benji Saini, Aug 17, 2020,20:33 ADEEL STEWART MED STUDENT Aug 17, 2020 07:49 BENJI SAINI DO Aug 18, 2020 20:33
[2020-08-17 08:00] VITALS: BP 120/67
--- NOTE | 2020-08-17 11:00 | Physical Therapy Daily Note ---
PT Daily Note-Current Subjective Patient agrees to PT. Pain Numeric Pain Scale: 8 Location: Lower Location Body Site: Abdomen Pain Description: Pressure Comment: meds issued prior Mental Status Patient Orientation: Normal For Age Attachments: Jansen Catheter, IV Transfers SCALE: Activities may be completed with or without assistive devices. 6-Komoqiglpj-asmgevx completes the activity by him/herself with no assistance from a helper. 5-Set-up or Clean-up Assistance-helper sets up or cleans up; patient completes activity. [place] assists only prior to or following the activity. 4-Supervision or Touching Assistance-helper provides verbal cues and/or touching/steadying and/or contact guard assistance as patient completes activity. Assistance may be provided throughout the activity or intermittently. 3-Partial/Moderate Assistance-helper does LESS THAN HALF the effort. [place] lifts, holds or supports trunk or limbs, but provides less than half the effort. 2-Substantial/Maximal Assistance-helper does MORE THAN HALF the effort. [place] lifts or holds trunk or limbs and provides more than half the effort. 8-Vcwbusknl-pazzqv does ALL the effort. Patient does none of the effort to complete the activity. Or, the assistance of 2 or more helpers is required for the patient to complete the activity. If activity was not attempted, code reason: 7-Patient Refused. 9-Not Applicable-not attempted and the patient did not perform the activity before the current illness, exacerbation or injury. 10-Not Attempted due to Environmental Limitations-(lack of equipment, weather restraints, etc.). 88-Not Attempted due to Medical Conditions or Safety Concerns. Roll Left & Right (QC): 6 Sit to Lying (QC): 6 Lying to Sitting/Side of Bed(Q: 6 Sit to Stand (QC): 6 Weight Bearing Right Lower Extremity: Right Weight Bearing/Tolerated Left Lower Extremity: Left Weight Bearing/Tolerated Gait Training Does the Patient Walk?: Yes Distance: 800' Walk 10 feet (QC): 6 Walk 50 ft with 2 Turns(QC): 6 Walk 150 ft (QC): 6 Gait Assistive Device: None safe and functional with no deviation/pushed IV pole independently Assessment Patient is currently at independent PLOF with all gross motor skills and is ambulating with nursing staff as well. PT to dismiss patient from services at this time. PT Snf Goals Antique Refinisher Goals PT Snf Goals Time Frame: Aug 23, 2020 Roll Left & Right (QC): 6 Sit to Lying (QC): 6 Lying-Sitting on Side/Bed(QC): 6 Sit to Stand (QC): 6 Chair/Som-ww-Ecjoi Xfer(QC): 6 Walk 10 feet (QC): 6 Walk 50ft with 2 Turns (QC): 6 Walk 150 ft (QC): 6 PT Plan Treatment/Plan Treatment Plan: Discontinue PT, goals met Treatment Plan: Bed Mobility, Education, Functional Activity Jose, Functional Strength, Gait, Safety, Therapeutic Exercise, Transfers Treatment Duration: Aug 23, 2020 Frequency: 6 times per week Estimated Hrs Per Day: .25 hour per day Patient and/or Family Agrees t: Yes Time/GCodes Time In: 1025 Time Out: 1048 Total Billed Treatment Time: 25 Total Billed Treatment 1 visit FA x 2 23 min DERICK LEMUS PT Aug 17, 2020 11:00
[2020-08-17 12:00] VITALS: BP 142/82
[2020-08-17] MEDS: ENOXAPARIN 40 MG/0.4 ML (LOVENOX) SYR SC SCH (13:22)
[2020-08-17 16:00] VITALS: BP 129/73
[2020-08-17 20:00] VITALS: BP 132/64
[2020-08-18] VITALS (8 sets, daily range): BP systolic 122–154; BP diastolic 67–91
[2020-08-18] MEDS: ONDANSETRON 4 MG/2 ML (SDV) Z0FRAN IVP PRN ×2 (03:03→14:45)
[2020-08-18] MEDS: LACTATED RINGERS 1,000 ML IV SCH ×3 (04:32→20:34)
[2020-08-18] MEDS: morphine INJ 10 MG/ML 1ML (SYR OR VIAL) IVP PRN ×3 (04:39→18:12)
--- NOTE | 2020-08-18 06:50 | Progress Note ---
Subjective Date Seen by a Provider: Aug 18, 2020 Time Seen by a Provider: 07:00 Subjective/Events-last exam Resting. He doesn't report much in terms of passing gas. He has started some ice chips. Objective Exam Vital Signs Date Time Temp Pulse Resp B/P (MAP) Pulse Ox O2 Delivery O2 Flow Rate FiO2 08/18/20 03:10 36.7 93 16 132/71 (91) 91 Room Air 08/18/20 00:41 36.7 91 17 122/67 (85) 92 Room Air 08/17/20 21:00 Room Air 08/17/20 20:00 37.6 113 18 132/64 (86) 91 Room Air 08/17/20 16:00 37.0 107 18 129/73 (91) 95 Room Air 08/17/20 12:00 36.6 92 12 142/82 (102) 94 Room Air 08/17/20 09:00 Room Air 08/17/20 08:00 36.5 88 16 120/67 (84) 94 Room Air I & O 08/18/20 07:00 Intake Total 3490 ml Output Total 875 ml Balance 2615 ml Capillary Refill : Less Than 3 SecondsLess Than 3 Seconds General Appearance: No Apparent Distress Neck: Supple Respiratory: Lungs Clear Cardiovascular: Regular Rate, Rhythm Gastrointestinal: other (bowel sounds quiet) Results Lab Microbiology 08/16/20 MRSA Screen - Final, Complete MRSA not isolated Assessment/Plan Assessment/Plan Assess & Plan/Chief Complaint 1. 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 08/18 -surgery following -Advancing his physical activity as tolerated 2. Dyspepsia history of -PPI as indicated Clinical Quality Measures DVT/VTE Risk/Contraindication: Risk Factor Score Per Nursin RFS Level Per Nursing on Admit: 4+=Very High GABY LOBO MD Aug 18, 2020 06:50
--- NOTE | 2020-08-18 08:28 | Progress Note - Surgery ---
ADEEL STEWART MED STUDENT 08/18/20 0828: Subjective Date Seen by a Provider: Aug 18, 2020 Time Seen by a Provider: 06:55 Subjective/Events-last exam See states he has had constant heartburn since 3 am today with nausea. This pain is epigastric and non-radiating, moderate severity. Still complains of severe pain near the surgical incision site, as well as some bloating. He states he has not passed gas or bowels yet. Denies fever, chills, chest pain, SOB, cough. Objective Exam Vital Signs Date Time Temp Pulse Resp B/P (MAP) Pulse Ox O2 Delivery O2 Flow Rate FiO2 08/18/20 07:44 Nasal Cannula 3.00 08/18/20 03:10 36.7 93 16 132/71 (91) 91 Room Air 08/18/20 00:41 36.7 91 17 122/67 (85) 92 Room Air 08/17/20 21:00 Room Air 08/17/20 20:00 37.6 113 18 132/64 (86) 91 Room Air 08/17/20 16:00 37.0 107 18 129/73 (91) 95 Room Air 08/17/20 12:00 36.6 92 12 142/82 (102) 94 Room Air 08/17/20 09:00 Room Air I & O 08/18/20 07:00 Intake Total 3490 ml Output Total 875 ml Balance 2615 ml Capillary Refill : Less Than 3 SecondsLess Than 3 Seconds General Appearance: No Apparent Distress HEENT: PERRL/EOMI Neck: Full Range of Motion, Non Tender Respiratory: Chest Non Tender, Lungs Clear, Normal Breath Sounds, No Accessory Muscle Use, No Respiratory Distress Cardiovascular: Regular Rate, Rhythm, No Edema, No Gallop, No JVD, No Murmur Gastrointestinal: distended (mildly); No guarding, No rebound; other (Midline incision stapled and appears clean without evidence of drainage or infection. Nontender at lateral abdomen, tenderness increases when approaching midline incision site. ) Extremity: Normal Capillary Refill Neurologic/Psychiatric: Alert, Oriented x3, Normal Mood/Affect Skin: Normal Color, Warm/Dry; No Diaphoresis Lymphatic: No Adenopathy Results Lab Microbiology 08/16/20 MRSA Screen - Final, Complete MRSA not isolated Assessment/Plan Assessment/Plan Assessment/Plan 1. 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 That is the worst problem. Patient with a little bit of nausea as well. Patient states he is been doing okay with liquids. His pain is moderate to severe at the incision site when he does not have pain medication on board. He is using incentive spirometer. He denies any fever sweats chills shortness of breath or chest pain. Objective Exam General Appearance: No Apparent Distress, WD/WN HEENT: Normal ENT Inspection Neck: Full Range of Motion, Non Tender Respiratory: Chest Non Tender, No Accessory Muscle Use, No Respiratory Distress Cardiovascular: Regular Rate, Rhythm, No JVD Gastrointestinal: distended (minimal); No guarding, No rebound; tenderness (incisional c/d/i) Extremity: Normal Capillary Refill, Non Tender Neurologic/Psychiatric: Alert, Oriented x3, Normal Mood/Affect Skin: Normal Color, Warm/Dry Lymphatic: No Adenopathy Assessment/Plan Assessment/Plan Assessment/Plan Status post colon resection partial with excision of retroperitoneal colon cancer extension. Patient was slight nausea GERD Patient started on Protonix Patient instructed to use incentive spirometer and ambulate. Pain control Repeat labs in a.m. Supervisory-Addendum Brief Verification & Attestation Participated in pt care: history, MDM, physical Personally performed: exam, history, MDM, supervision of care Care discussed with: Medical Student Procedures: n/a Results interpretation: Verified all documentation Verification and Attestation of Medical Student E/M Service A medical student performed and documented this service in my presence. I reviewed and verified all information documented by the medical student and made modifications to such information, when appropriate. I personally performed the physical exam and medical decision making. Benji Judge, Aug 18, 2020,20:41 ADEEL STEWART MED STUDENT Aug 18, 2020 08:28 BENJI JUDGE DO Aug 18, 2020 20:41
[2020-08-18] MEDS ORDERED: PANTOPRAZOLE 40 MG (PROTONIX) VIAL ONE (09:31)
[2020-08-18] MEDS: PANTOPRAZOLE 40 MG (PROTONIX) VIAL IV SCH (09:37)
--- NOTE | 2020-08-18 10:04 | NUR ---
DIAPHORETIC, BP 138/81, 88. TEMP 35.7, C/O HEARTBURN, DR SAINI NOTIFIED
[2020-08-18] MEDS ORDERED: 1/2 NS IV SOLUTION 1,000 ML IV PRN (10:06)
[2020-08-18] MEDS ORDERED: LORazepam INJ 2 MG/ML (ATIVAN) VIAL IM/IV PRN (10:15)
[2020-08-18] MEDS ORDERED: LORazepam INJ 2 MG/ML (ATIVAN) VIAL IV PRN (10:15)
[2020-08-18] MEDS ORDERED: D5 1/2 NS 1000 ML IV SOLUTION 1,000 ML IV PRN (10:15)
[2020-08-18] MEDS ORDERED: LORazepam 1 MG (ATIVAN) TAB PO PRN (10:15)
--- NOTE | 2020-08-18 10:16 | NUR ---
CIWA SCALE STARTED ORDERED BY DR SAINI, PATIENT ADMITS TO DRINKING VODKA DAILY AND FEELING ANXIOUS. PATIENT HAS WALKED IN ABAD TWICE SO FAR TODAY, BELCHING BUT DENIES PASSING FLATUS, ABD INCISION WITHOUT REDNESS OR DRAINAGE, PK PACK TO ABD, USING IS INSTRUCTED,
--- NOTE | 2020-08-18 14:07 | NUR ---
"RD ASSESSMENT PMHx: Pt was awake and pleasant during nutrition assessment. Pt states current appetite is good. Note pt is currently NPO x2d, per chart review. Pt states following a regular diet at home, and has no issues with chewing/swallowing food. Pt states recent issues with nausea, and that his last BM was 08/15. Note pt not currently on bowel regimen per chart review. Pt states no recent wt changes. Note unable to determine recent wt hx, per chart review. PT INTERACTION: ABNORMAL NUTRITION-RELATED LAB VALUES LOW: Pro 5.9 HIGH: glu 147 Est. kcal needs: 1800 kcal | 15 kcal/kg Est. Pro needs: 119 g Pro | 1.0 g Pro/kg PES STATEMENT: Inadequate oral intake (NI-2.1) related to loss of appetite | NPO status | nausea as evidenced by pt interview | chart review INTERVENTION: Note pt is currently NPO x2d. Would recommend diet advancement to Clear Liquid diet, to prevent risk of malnutrition. Will continue to follow and reassess as pt needs, intake, and status change. James Vieyra, MS, RD, LD"
[2020-08-18] MEDS: ENOXAPARIN 40 MG/0.4 ML (LOVENOX) SYR SC SCH (15:06)
--- NOTE | 2020-08-18 15:30 | NUR ---
Pastoral care visit.
[2020-08-19] VITALS: BP 146/87
[2020-08-19 04:05] VITALS: BP 136/79
[2020-08-19] MEDS: LACTATED RINGERS 1,000 ML IV SCH ×3 (04:39→19:56)
[2020-08-19 06:17] LABS: HEMOGLOBIN 12.5 g/dL (13.3-17.7); MEAN PLATELET VOLUME 9.6 fL (9.0-12.2); WHITE BLOOD COUNT 12.3 10^3/uL (4.3-11.0)
[2020-08-19 06:23] LABS: CHLORIDE 104 MMOL/L (98-107); POTASSIUM 3.9 MMOL/L (3.6-5.0); SODIUM 139 MMOL/L (135-145)
[2020-08-19 06:25] LABS: CALCIUM 8.5 MG/DL (8.5-10.1); GLUCOSE 115 MG/DL (70-105)
[2020-08-19 06:27] LABS: CARBON DIOXIDE 23 MMOL/L (21-32)
[2020-08-19 06:29] LABS: CREATININE SERUM 0.74 MG/DL (0.60-1.30); GFR ESTIMATED > 60
[2020-08-19 06:30] LABS: BUN/CREATININE RATIO 11
[2020-08-19 06:31] LABS: MAGNESIUM 1.8 MG/DL (1.6-2.4)
[2020-08-19 07:57] VITALS: BP 135/85
[2020-08-19] MEDS: PANTOPRAZOLE 40 MG (PROTONIX) VIAL IV SCH (09:01)
[2020-08-19] MEDS: ONDANSETRON 4 MG/2 ML (SDV) Z0FRAN IVP PRN (09:14)
--- NOTE | 2020-08-19 11:13 | Progress Note - Surgery ---
Subjective Time Seen by a Provider: 10:06 Subjective/Events-last exam Pt seen and examined, states he has not had any flatus or BM. He did get up and have shower, denies N/V. Review of Systems General: No Chills, No Night Sweats Pulmonary: No Dyspnea, No Cough Cardiovascular: No: Chest Pain, Palpitations Gastrointestinal: Abdominal Pain Objective Exam Vital Signs Date Time Temp Pulse Resp B/P (MAP) Pulse Ox O2 Delivery O2 Flow Rate FiO2 08/19/20 09:00 Room Air 08/19/20 07:57 36.6 87 20 135/85 (102) 97 Room Air 08/19/20 07:00 93 08/19/20 04:05 36.8 89 20 136/79 (98) 94 Room Air 08/19/20 01:00 97 08/19/20 00:00 37.2 95 20 146/87 (106) 93 Room Air 08/18/20 20:30 Room Air 08/18/20 20:18 36.9 96 20 152/87 (108) 93 Room Air 08/18/20 19:26 90 Room Air 08/18/20 19:00 106 08/18/20 18:00 36.8 110 20 141/86 (104) 95 Room Air 08/18/20 16:16 37.7 101 18 154/91 (112) 95 Room Air 08/18/20 12:41 96 08/18/20 12:00 36.8 88 16 146/87 (106) 95 Room Air 08/18/20 11:40 97 I & O 08/19/20 06:59 Intake Total 1050 ml Output Total 400 ml Balance 650 ml Capillary Refill : Less Than 3 SecondsLess Than 3 Seconds General Appearance: No Apparent Distress, Obese Respiratory: Chest Non Tender, Lungs Clear, Normal Breath Sounds, No Accessory Muscle Use, No Respiratory Distress Cardiovascular: Regular Rate, Rhythm, No JVD Gastrointestinal: distended (moderate); No guarding, No rebound; tenderness (incisional c/d/i) Extremity: No Calf Tenderness Neurologic/Psychiatric: Alert, Oriented x3 Results Lab Laboratory Tests 08/19/20 05:40: White Blood Count 12.3H, Red Blood Count 4.77, Hemoglobin 12.5L, Hematocrit 40, Mean Corpuscular Volume 84, Mean Corpuscular Hemoglobin 26, Mean Corpuscular Hemoglobin Concent 31L, Red Cell Distribution Width 15.9H, Platelet Count 274, Mean Platelet Volume 9.6, Sodium Level 139, Potassium Level 3.9, Chloride Level 104, Carbon Dioxide Level 23, Anion Gap 12, Blood Urea Nitrogen 8, Creatinine 0.74, Estimat Glomerular Filtration Rate > 60, BUN/Creatinine Ratio 11, Glucose Level 115H, Calcium Level 8.5, Magnesium Level 1.8 Microbiology 08/16/20 MRSA Screen - Final, Complete MRSA not isolated Assessment/Plan Assessment/Plan Assessment/Plan S/P Left Colectomy with removal of retroperitoneal extension Pt encouraged to ambulate and chew gum, both will help with return of bowel function. Continue using IS and sips of liquids ok. Clinical Quality Measures DVT/VTE Risk/Contraindication: Risk Factor Score Per Nursin RFS Level Per Nursing on Admit: 4+=Very High MICHELL STANFORD DO Aug 19, 2020 11:13
[2020-08-19 11:14] VITALS: BP 138/74
[2020-08-19] MEDS: ENOXAPARIN 40 MG/0.4 ML (LOVENOX) SYR SC SCH (12:56)
[2020-08-19 15:52] VITALS: BP 142/88
[2020-08-19] MEDS: morphine INJ 10 MG/ML 1ML (SYR OR VIAL) IVP PRN (17:24)
[2020-08-19 19:28] VITALS: BP 152/78
[2020-08-20 04:15] VITALS: BP 123/76
[2020-08-20] MEDS: LACTATED RINGERS 1,000 ML IV SCH ×3 (05:14→22:32)
[2020-08-20] MEDS: morphine INJ 10 MG/ML 1ML (SYR OR VIAL) IVP PRN ×2 (07:13→19:00)
[2020-08-20 07:26] VITALS: BP 137/84
[2020-08-20] MEDS: PANTOPRAZOLE 40 MG (PROTONIX) VIAL IV SCH (08:26)
--- NOTE | 2020-08-20 10:10 | Progress Note - Surgery ---
Subjective Time Seen by a Provider: 09:13 Subjective/Events-last exam Pt seen and examined, states he had a BM; nurse told me it was maroone. He thinks the walking and chewing gum helped. Minimal pain and still feels a little bloated. Review of Systems Pulmonary: No Dyspnea, No Cough Cardiovascular: No: Chest Pain, Palpitations Gastrointestinal: Abdominal Pain; No: Nausea, Vomiting Objective Exam Vital Signs Date Time Temp Pulse Resp B/P (MAP) Pulse Ox O2 Delivery O2 Flow Rate FiO2 08/20/20 07:26 36.7 74 16 137/84 (101) 92 Room Air 08/20/20 07:00 79 08/20/20 04:15 36.8 74 16 123/76 (92) 94 Nasal Cannula 1.00 08/20/20 01:00 74 08/19/20 23:17 36.6 80 18 93 Nasal Cannula 1.00 08/19/20 21:00 Room Air 08/19/20 19:28 37.0 90 18 152/78 (102) 92 Room Air 08/19/20 19:13 92 Room Air 3.00 08/19/20 19:00 100 08/19/20 15:52 36.1 104 18 142/88 (106) 93 Room Air 08/19/20 12:32 105 08/19/20 11:14 36.8 92 18 138/74 (95) 96 Room Air I & O 08/20/20 07:00 Intake Total 3030 ml Output Total 1550 ml Balance 1480 ml Capillary Refill : Less Than 3 SecondsLess Than 3 Seconds General Appearance: No Apparent Distress, Obese Respiratory: Chest Non Tender, Lungs Clear, Normal Breath Sounds, No Accessory Muscle Use, No Respiratory Distress Cardiovascular: Regular Rate, Rhythm, No JVD Gastrointestinal: distended (??slightly better than yesterday); No guarding, No rebound; tenderness (incisional c/d/i) Extremity: No Calf Tenderness Neurologic/Psychiatric: Alert, Oriented x3 Results Lab Microbiology 08/16/20 MRSA Screen - Final, Complete MRSA not isolated Assessment/Plan Assessment/Plan Assessment/Plan S/P Left Colectomy with removal of retroperitoneal extension Pt encouraged to continue ambulation and chew gum, both will help with return of bowel function. Will start clears. Clinical Quality Measures DVT/VTE Risk/Contraindication: Risk Factor Score Per Nursin RFS Level Per Nursing on Admit: 4+=Very High MICHELL STANFORD DO Aug 20, 2020 10:10
[2020-08-20] MEDS: ENOXAPARIN 40 MG/0.4 ML (LOVENOX) SYR SC SCH (13:02)
[2020-08-20 15:44] VITALS: BP 160/83
[2020-08-20 19:07] VITALS: BP 155/81
[2020-08-20 23:47] VITALS: BP 132/76
[2020-08-21] VITALS (7 sets, daily range): BP systolic 141–165; BP diastolic 79–87
--- NOTE | 2020-08-21 06:05 | Progress Note - Surgery ---
PRATIK FRAZIER,MED STUDENT 08/21/20 0605: Subjective Date Seen by a Provider: Aug 21, 2020 Time Seen by a Provider: 05:48 Subjective/Events-last exam Patient seen and examined this morning. He denies any pain currently. States he feels some shortness of breath but thinks it is from the way he has been laying in bed. He started clear liquids yesterday and had two cups of jello, but felt bloated after those. Denies any nausea or vomiting, fever or chills. Feels like he needs to have a BM soon. Review of Systems General: No Chills HEENT: No Head Aches, No Visual Changes Pulmonary: Dyspnea; No Cough Cardiovascular: No: Chest Pain, Edema Gastrointestinal: No: Nausea, Vomiting, Abdominal Pain Objective Exam Vital Signs Date Time Temp Pulse Resp B/P (MAP) Pulse Ox O2 Delivery O2 Flow Rate FiO2 08/21/20 03:28 37.0 72 18 141/79 (99) 95 Room Air 08/21/20 01:00 73 08/20/20 23:47 36.5 84 16 132/76 (94) 96 Room Air 08/20/20 21:01 Room Air 08/20/20 19:07 36.8 92 18 155/81 (105) 94 Room Air 08/20/20 19:00 93 08/20/20 18:47 92 Room Air 08/20/20 15:44 37.0 79 18 160/83 (108) 94 Room Air 08/20/20 12:31 83 08/20/20 10:36 91 Room Air 3.00 08/20/20 09:00 Room Air 08/20/20 07:26 36.7 74 16 137/84 (101) 92 Room Air 08/20/20 07:00 79 I & O 08/21/20 07:00 Intake Total 1320 ml Output Total 1400 ml Balance -80 ml Capillary Refill : Less Than 3 SecondsLess Than 3 Seconds General Appearance: No Apparent Distress HEENT: Moist Mucous Membranes Respiratory: Lungs Clear, No Accessory Muscle Use, No Respiratory Distress Cardiovascular: Regular Rate, Rhythm, No Edema, No Murmur Gastrointestinal: abnormal bowel sounds (decreased), distended; No guarding, No rebound; tenderness (worse in LLQ), other (incisions c/d/i) Extremity: No Calf Tenderness, No Pedal Edema Neurologic/Psychiatric: Alert, No Motor/Sensory Deficits, Normal Mood/Affect Skin: Normal Color, Warm/Dry Results Lab Microbiology 08/16/20 MRSA Screen - Final, Complete MRSA not isolated Assessment/Plan Assessment/Plan Assessment/Plan S/P Left Colectomy with removal of retroperitoneal extension- encourage ambulation and IS. Continue clear liquid diet and LR. Vitals stable. Adenocarcinoma of descending colon, with involvement of retroperitoneal lymph nodes- Will most likely need chemotherapy, per Oncology. Should have an appointment in 2 weeks with them. Acid reflux- continue protonix daily DVT prophylaxis- continue lovenox, encourage ambulation Clinical Quality Measures DVT/VTE Risk/Contraindication: Risk Factor Score Per Nursin RFS Level Per Nursing on Admit: 4+=Very High BENJI JUDGE DO 08/21/201948: Subjective Subjective/Events-last exam Patient states he is feeling better today. He is not having any pain. He is having a small amount of clears but having bloated feeling. He is passing flatus a little bit. Reflux improved. Denies any nausea or vomiting fever sweats chills shortness of breath or chest pain. Objective Exam General Appearance: No Apparent Distress HEENT: PERRL/EOMI, Normal ENT Inspection Neck: Full Range of Motion, Non Tender Respiratory: Chest Non Tender, No Accessory Muscle Use, No Respiratory Distress Cardiovascular: Regular Rate, Rhythm, No Edema Gastrointestinal: distended (Mild); No guarding, No rebound; tenderness (Incisional), other (incisions c/d/i) Extremity: No Calf Tenderness Neurologic/Psychiatric: Alert, Oriented x3, No Motor/Sensory Deficits, Normal Mood/Affect Skin: Normal Color, Warm/Dry Lymphatic: No Adenopathy Assessment/Plan Assessment/Plan Assessment/Plan S/P Left Colectomy with removal of retroperitoneal extension- encourage ambulation and IS. Continue clear liquid diet and LR. Vitals stable. Adenocarcinoma of descending colon, with involvement of retroperitoneal lymph nodes- Will most likely need chemotherapy, per Oncology. Should have an appointment in 2 weeks with them. Acid reflux- continue protonix daily DVT prophylaxis- continue lovenox, encourage ambulation Supervisory-Addendum Brief Verification & Attestation Participated in pt care: history, MDM, physical Personally performed: exam, history, MDM, supervision of care Care discussed with: Medical Student Procedures: n/a Results interpretation: Verified all documentation Verification and Attestation of Medical Student E/M Service A medical student performed and documented this service in my presence. I reviewed and verified all information documented by the medical student and made modifications to such information, when appropriate. I personally performed the physical exam and medical decision making. Benji Judge, Aug 21, 2020,19:49 PRATIK FRAZIER,NATHAN STUDENT Aug 21, 2020 06:05 BENJI JUDGE DO Aug 21, 2020 19:49
[2020-08-21] MEDS: LACTATED RINGERS 1,000 ML IV SCH ×3 (06:19→23:28)
[2020-08-21] MEDS: PANTOPRAZOLE 40 MG (PROTONIX) VIAL IV SCH (08:52)
[2020-08-21] MEDS: ENOXAPARIN 40 MG/0.4 ML (LOVENOX) SYR SC SCH (13:21)
--- NOTE | 2020-08-21 21:48 | NUR ---
DR. SAINI NOTIFIED OF LARGE AMOUNT OF SEROSANGUINEOUS DRAINAGE COMING FROM PT'S MIDLINE INCISION. NO NEW ORDERS RECEIVED, ABD PAD APPLIED OVER INCISION AND WILL CONTINUE TO MONITOR.
[2020-08-22 03:40] VITALS: BP 151/83
[2020-08-22] MEDS: LACTATED RINGERS 1,000 ML IV SCH ×4 (04:30→23:59)
--- NOTE | 2020-08-22 07:16 | Progress Note - Surgery ---
PRATIK FRAZIER,MED STUDENT 08/22/20 0716: Subjective Date Seen by a Provider: Aug 22, 2020 Time Seen by a Provider: 06:40 Subjective/Events-last exam Patient had a large amount of serosanginous fluid from his incision last night after getting up from bed. States it has been draining since. Still feels bloated and states at time it causes him to feel short of breath. Had 2 servings of jello yesterday morning and afternoon. He is passing gas and had a BM yesterday morning. Denies any fever, abdominal pain, nausea or vomiting. Review of Systems General: No Chills; Other (no fever) HEENT: No Head Aches Pulmonary: No Cough; Other (shortness of breath- "hard to take deep breaths at times") Cardiovascular: No: Chest Pain, Edema Gastrointestinal: No: Nausea, Vomiting, Abdominal Pain Genitourinary: No Dysuria, No Hematuria Objective Exam Vital Signs Date Time Temp Pulse Resp B/P (MAP) Pulse Ox O2 Delivery O2 Flow Rate FiO2 08/22/20 03:40 36.6 70 18 151/83 (105) 92 Room Air 08/22/20 01:00 61 08/21/20 23:29 36.5 70 18 165/80 (108) 97 Room Air 08/21/20 20:05 Room Air 08/21/20 19:26 37.3 73 18 161/87 (111) 96 Room Air 08/21/20 19:00 79 08/21/20 16:00 36.8 76 18 159/85 (109) 97 Room Air 08/21/20 13:21 94 Room Air 08/21/20 13:21 36.6 81 94 08/21/20 12:31 81 08/21/20 12:00 36.6 81 16 153/81 (105) 97 Room Air 08/21/20 09:00 Room Air 08/21/20 08:00 36.4 87 18 160/84 (109) 96 Room Air I & O 08/22/20 07:00 Intake Total 2360 ml Output Total 5450 ml Balance -3090 ml Capillary Refill : Less Than 3 SecondsLess Than 3 Seconds General Appearance: No Apparent Distress HEENT: PERRL/EOMI Respiratory: Lungs Clear, No Accessory Muscle Use, No Respiratory Distress Cardiovascular: Regular Rate, Rhythm, No Edema Gastrointestinal: distended (slightly increased from yesterday); No guarding, No rebound; tenderness (Incisional), other (lower aspect of midline incision draining serosanginous fluid, mild erythema, veronica intact) Extremity: No Calf Tenderness, No Pedal Edema Neurologic/Psychiatric: Alert, Oriented x3, No Motor/Sensory Deficits, Normal Mood/Affect Skin: Normal Color, Warm/Dry Results Lab Microbiology 08/16/20 MRSA Screen - Final, Complete MRSA not isolated Assessment/Plan Assessment/Plan Assessment/Plan S/P Left Colectomy with removal of retroperitoneal extension- encourage ambulation and IS. Continue local wound care, clear liquid diet and LR. Oral pain medications if needed. Vitals stable. Adenocarcinoma of descending colon, with involvement of retroperitoneal lymph nodes- Will most likely need chemotherapy, per Oncology. Should have an appointment in 2 weeks with them. Acid reflux- continue protonix daily DVT prophylaxis- continue lovenox, encourage ambulation Clinical Quality Measures DVT/VTE Risk/Contraindication: Risk Factor Score Per Nursin RFS Level Per Nursing on Admit: 4+=Very High STEFAN JUDGE DO 08/22/20 2020: Subjective Subjective/Events-last exam Patient last serosanguineous drainage from his wound after up and moving. He still has some serosanguineous drainage. Patient is having some liquids but feeling bloated. Ambulating some. Patient is passing flatus and having bowel movement. Pain is controlled. Denies any fever sweats chills shortness of breath or chest pain. Objective Exam General Appearance: No Apparent Distress, WD/WN HEENT: PERRL/EOMI, Normal ENT Inspection Neck: Non Tender, Supple Respiratory: Chest Non Tender, No Accessory Muscle Use, No Respiratory Distress Cardiovascular: Regular Rate, Rhythm, No JVD Gastrointestinal: distended (slightly increased from yesterday); No guarding, No rebound; tenderness (Incisional), other (lower aspect of midline incision draining serosanginous fluid, mild erythema around the veronica, veronica intact) Extremity: No Calf Tenderness Neurologic/Psychiatric: Alert, Oriented x3, No Motor/Sensory Deficits, Normal Mood/Affect Skin: Normal Color, Warm/Dry Lymphatic: No Adenopathy Assessment/Plan Assessment/Plan Assessment/Plan S/P Left Colectomy with removal of retroperitoneal extension- encourage ambulation and IS. Continue local wound care, clear liquid diet and LR. Oral pain medications if needed. Vitals stable. Adenocarcinoma of descending colon, with involvement of retroperitoneal lymph nodes- Will most likely need chemotherapy, per Oncology. Should have an appointment in 2 weeks with them. Acid reflux- continue protonix daily DVT prophylaxis- continue lovenox, encourage ambulation Postoperative ileusabdominal distention will get KUB Supervisory-Addendum Brief Verification & Attestation Participated in pt care: history, MDM, physical Personally performed: exam, history, MDM, supervision of care Care discussed with: Medical Student Procedures: n/a Results interpretation: Verified all documentation Verification and Attestation of Medical Student E/M Service A medical student performed and documented this service in my presence. I reviewed and verified all information documented by the medical student and made modifications to such information, when appropriate. I personally performed the physical exam and medical decision making. Stefan Judge, Aug 22, 2020,20:19 PRATIK FRAZIER,MED STUDENT Aug 22, 2020 07:16 STEFAN JUDGE DO Aug 22, 2020 20:20
[2020-08-22 08:12] VITALS: BP 162/89
[2020-08-22 08:26] LABS: HEMOGLOBIN 10.3 g/dL (13.3-17.7); WHITE BLOOD COUNT 5.8 10^3/uL (4.3-11.0)
[2020-08-22] MEDS: PANTOPRAZOLE 40 MG (PROTONIX) VIAL IV SCH (08:40)
[2020-08-22 08:44] LABS: BUN/CREATININE RATIO 5; CALCIUM 8.4 MG/DL (8.5-10.1); CARBON DIOXIDE 20 MMOL/L (21-32); CHLORIDE 105 MMOL/L (98-107); CREATININE SERUM 0.77 MG/DL (0.60-1.30); GFR ESTIMATED > 60; GLUCOSE 105 MG/DL (70-105); MAGNESIUM 2.2 MG/DL (1.6-2.4); POTASSIUM 3.5 MMOL/L (3.6-5.0); SODIUM 140 MMOL/L (135-145)
[2020-08-22 12:26] VITALS: BP 165/85
[2020-08-22 15:28] VITALS: BP 163/94
--- NOTE | 2020-08-22 15:37 | NUR ---
CALLED DR SAINI. HOLD TODAY'S LOVENOX . ORAL PAIN MEDICATION ORDER GIVEN
[2020-08-22] MEDS: morphine INJ 10 MG/ML 1ML (SYR OR VIAL) IVP PRN (15:39)
[2020-08-22] MEDS: ONDANSETRON 4 MG/2 ML (SDV) Z0FRAN IVP PRN (15:41)
[2020-08-22] MEDS: ENOXAPARIN 40 MG/0.4 ML (LOVENOX) SYR SC SCH (15:42)
[2020-08-22] MEDS ORDERED: HYDROcodone/APAP 5 MG/325 MG (LORTAB) TAB PO PRN (16:30)
--- NOTE | 2020-08-22 18:03 | Diagnostic Imaging Report ---
INDICATION: Postoperative colectomy COMPARISON: 08/02/2020 TECHNIQUE: 3 radiographs of the abdomen dated 08/22/2020 FINDINGS: Left basilar interstitial opacities. Vertically oriented skin veronica are present. Chain suture is present overlying the left mid abdomen. Multiple loops of dilated small bowel are present, measuring near 6 cm. Additionally, differential air-fluid levels are present with associated string of pearls sign. No significant free air. No acute osseous abnormality. IMPRESSION: Significantly dilated loops of small bowel with differential air-fluid levels concerning for underlying small bowel obstruction. Postoperative ileus felt less likely. CT of abdomen and pelvis would help to further evaluate. Interval postsurgical changes. Mild left basilar atelectasis and/or pneumonitis. Report given to Dr. Judge at 6:02 PM 08/22/2020/thai Dictated by: Dictated on workstation # [id number]
[2020-08-22 19:19] VITALS: BP 171/88
[2020-08-23 00:05] VITALS: BP 150/76
[2020-08-23 04:37] VITALS: BP 141/82
[2020-08-23 06:15] LABS: HEMOGLOBIN 10.2 g/dL (13.3-17.7); MEAN PLATELET VOLUME 9.5 fL (9.0-12.2); WHITE BLOOD COUNT 5.7 10^3/uL (4.3-11.0)
[2020-08-23 06:24] LABS: CHLORIDE 106 MMOL/L (98-107); POTASSIUM 3.6 MMOL/L (3.6-5.0); SODIUM 137 MMOL/L (135-145)
[2020-08-23 06:25] LABS: CALCIUM 8.1 MG/DL (8.5-10.1)
[2020-08-23 06:26] LABS: GLUCOSE 92 MG/DL (70-105)
[2020-08-23 06:27] LABS: CARBON DIOXIDE 20 MMOL/L (21-32)
[2020-08-23 06:30] LABS: CREATININE SERUM 0.69 MG/DL (0.60-1.30); GFR ESTIMATED > 60
[2020-08-23 06:31] LABS: BUN/CREATININE RATIO 9
[2020-08-23 06:32] LABS: MAGNESIUM 1.9 MG/DL (1.6-2.4)
--- NOTE | 2020-08-23 07:15 | Progress Note - Surgery ---
PRATIK FRAZIER,MED STUDENT 08/23/20 0715: Subjective Date Seen by a Provider: Aug 23, 2020 Time Seen by a Provider: 06:49 Subjective/Events-last exam Patient feeling much better this morning. He had 2 BMs yesterday and one this morning, appears to be mainly brown liquid. His bloating is decreased from yesterday and the drainage from his incision has slowed down. Is hoping to try a solid lunch this afternoon. Denies fever, abdominal pain, chest pain, shortness of breath. Ambulating well. Review of Systems General: No Chills Pulmonary: No Dyspnea, No Cough Cardiovascular: No: Chest Pain, Edema Gastrointestinal: No: Nausea, Vomiting, Abdominal Pain, Constipation Genitourinary: No Dysuria; Frequency; No Hematuria Neurological: No: Weakness, Numbness Objective Exam Vital Signs Date Time Temp Pulse Resp B/P (MAP) Pulse Ox O2 Delivery O2 Flow Rate FiO2 08/23/20 04:37 36.6 68 18 141/82 (101) 95 Room Air 08/23/20 01:00 62 08/23/20 00:05 36.5 78 16 150/76 (100) 93 Room Air 08/22/20 21:00 Room Air 08/22/20 19:19 37.2 70 18 171/88 (115) 96 Room Air 08/22/20 19:00 85 08/22/20 15:28 37.4 69 18 163/94 (117) 98 Room Air 08/22/20 12:45 91 08/22/20 12:26 36.5 74 16 165/85 (111) 95 Room Air 08/22/20 08:56 94 Room Air 08/22/20 08:12 36.4 72 16 162/89 (113) 94 Room Air I & O 08/23/20 07:00 Intake Total 2740 ml Output Total 2145 ml Balance 595 ml Capillary Refill : Less Than 3 SecondsLess Than 3 Seconds General Appearance: No Apparent Distress, WD/WN HEENT: PERRL/EOMI, Moist Mucous Membranes Respiratory: No Accessory Muscle Use, No Respiratory Distress Cardiovascular: Regular Rate, Rhythm, No Edema Gastrointestinal: distended (decreased from yesterday); No guarding, No rebound; tenderness (Incisional), other (lower aspect of midline incision draining serosanginous fluid, mild erythema around the veronica, veronica intact) Extremity: No Calf Tenderness, No Pedal Edema Neurologic/Psychiatric: Alert, No Motor/Sensory Deficits, Normal Mood/Affect Skin: Normal Color, Warm/Dry Results Lab Laboratory Tests 08/22/20 08:20: White Blood Count 5.8, Red Blood Count 4.00L, Hemoglobin 10.3L, Hematocrit 33L, Mean Corpuscular Volume 83, Mean Corpuscular Hemoglobin 26, Mean Corpuscular Hemoglobin Concent 31L, Red Cell Distribution Width 15.5H, Platelet Count 249, Mean Platelet Volume 9.0, Sodium Level 140, Potassium Level 3.5L, Chloride Level 105, Carbon Dioxide Level 20L, Anion Gap 15H, Blood Urea Nitrogen 4L, Creatinine 0.77, Estimat Glomerular Filtration Rate > 60, BUN/Creatinine Ratio 5, Glucose Level 105, Calcium Level 8.4L, Magnesium Level 2.2 08/23/20 05:47: White Blood Count 5.7, Red Blood Count 3.86L, Hemoglobin 10.2L, Hematocrit 32L, Mean Corpuscular Volume 83, Mean Corpuscular Hemoglobin 26, Mean Corpuscular Hemoglobin Concent 32, Red Cell Distribution Width 15.5H, Platelet Count 248, Mean Platelet Volume 9.5, Sodium Level 137, Potassium Level 3.6, Chloride Level 106, Carbon Dioxide Level 20L, Anion Gap 11, Blood Urea Nitrogen 6L, Creatinine 0.69, Estimat Glomerular Filtration Rate > 60, BUN/Creatinine Ratio 9, Glucose Level 92, Calcium Level 8.1L, Magnesium Level 1.9 Microbiology 08/16/20 MRSA Screen - Final, Complete MRSA not isolated Assessment/Plan Assessment/Plan Assessment/Plan S/P Left Colectomy with removal of retroperitoneal extension- encourage ambulation and IS. Continue local wound care. Oral pain medications if needed. Vitals stable. Decrease LR since patient is tolerating more orally. Adenocarcinoma of descending colon, with involvement of retroperitoneal lymph nodes- Will most likely need chemotherapy, per Oncology. Should have an appointment in 2 weeks with them. Acid reflux- continue protonix daily DVT prophylaxis- restart lovenox, encourage ambulation Postoperative ileus vs Small bowel obstructionKUB showed multiple loops of dilated small bowel with air fluid levels, but patient improved clinically this morning, distension decreased, having bowel movements. Clinical Quality Measures DVT/VTE Risk/Contraindication: Risk Factor Score Per Nursin RFS Level Per Nursing on Admit: 4+=Very High STEFAN JUDGE DO 08/23/202054: Subjective Subjective/Events-last exam Patient feeling better today. He is having bowel movements and flatus. Patient tolerating liquids. Minimal serosanguineous drainage from the midline incision. Patient wanting to go home. He denies any fever sweats chills shortness of breath or chest pain. Objective Exam General Appearance: No Apparent Distress, WD/WN HEENT: PERRL/EOMI, Moist Mucous Membranes Neck: Full Range of Motion, Normal Inspection Respiratory: Chest Non Tender, No Accessory Muscle Use, No Respiratory Distress Cardiovascular: Regular Rate, Rhythm, No Edema Gastrointestinal: distended (decreased from yesterday); No guarding, No rebound; tenderness (Incisional minimal), other (lower aspect of midline incision draining serosanginous fluid, mild erythema around the veronica, veronica intact) Extremity: No Calf Tenderness, No Pedal Edema Neurologic/Psychiatric: Alert, Oriented x3, No Motor/Sensory Deficits, Normal Mood/Affect Skin: Normal Color, Warm/Dry Lymphatic: No Adenopathy Assessment/Plan Assessment/Plan Assessment/Plan S/P Left Colectomy with removal of retroperitoneal extension- encourage ambulation and IS. Continue local wound care. Oral pain medications if needed. Vitals stable. Decrease LR since patient is tolerating more orally. Adenocarcinoma of descending colon, with involvement of retroperitoneal lymph nodes- Will most likely need chemotherapy, per Oncology. Should have an appointment in 2 weeks with them. Acid reflux- continue protonix daily DVT prophylaxis- restart lovenox, encourage ambulation Postoperative ileus vs Small bowel obstructionKUB showed multiple loops of dilated small bowel with air fluid levels, but patient improved clinically this morning, distension decreased, having bowel movements. Patient wanting to go home. Will discharge home today if tolerates advance diet. Supervisory-Addendum Brief Verification & Attestation Participated in pt care: history, MDM, physical Personally performed: exam, history, MDM, supervision of care Care discussed with: Medical Student Procedures: n/a Results interpretation: Verified all documentation Verification and Attestation of Medical Student E/M Service A medical student performed and documented this service in my presence. I reviewed and verified all information documented by the medical student and made modifications to such information, when appropriate. I personally performed the physical exam and medical decision making. Stefan Judge, Aug 23, 2020,20:56 PRATIK FRAZIER,MED STUDENT Aug 23, 2020 07:15 STEFAN JUDGE DO Aug 23, 2020 20:55
[2020-08-23] MEDS: LACTATED RINGERS 1,000 ML IV SCH (07:43)
[2020-08-23] MEDS: PANTOPRAZOLE 40 MG (PROTONIX) VIAL IV SCH (07:43)
[2020-08-23 08:00] VITALS: BP 151/81
[2020-08-23 12:00] VITALS: BP 160/89
[2020-08-23] MEDS: ENOXAPARIN 40 MG/0.4 ML (LOVENOX) SYR SC SCH (13:52)
[2020-08-23 15:58] VITALS: BP 156/96
[2020-08-23] MEDS ORDERED: ACHD5005 PO (17:29)
--- NOTE | 2020-08-23 17:34 | Discharge Inst-Simple/Standard ---
Discharge Inst-Standard Discharge Medications New, Converted or Re-Newed RX: RX on Chart Patient Instructions/Follow Up Plan of Care/Instructions/FU: 1-2 weeks Alfie Activity as Tolerated: No Discharge Diet: Regular Diet Other Inst to Patient Follow up Appt: Make appointment for 1-2 week. Instructions: No lifting greater than 10 pounds. No strenuous activity. May shower in 24 hours, no tub bath or soaking. Use incentive spirometer at home as directed. No Smoking Skin/Wound Care: Keep area clean and dry. Symptoms to Report: Appetite Changes, Extremity Discoloration, Numbness/Tingling, Swelling Increased, Bleeding Excessive, Eyesight Changes, Pain Increased, Urine Color Change, Constipation(Persistent), Fever over 101 degree F, Pain/Pressure in chest, Urinating Difficulty, Cough Up/Vomit Blood, Heart Beat Irreg/Pounding, Pain/Pressure in jaw, Vaginal Bleeding Increase, Cramps in feet or legs, Lightheadedness, Pain/Pressure in shoulder, Diarrhea(Persistent), Memory Changes Suddenly, Questions/Concerns, Weight gain consecutive days, Dizziness/Fainting, Nausea/Vomiting, Shortness of Breath, Weight gain over 2 pounds If questions or concerns contact your physician Or seek help at emergency department. Planned Outpatient Orders/Ref. Pneu Vac Indicated: Yes BENJI SAINI DO Aug 23, 2020 17:34
[2020-08-23 18:00] VITALS: BP 156/96
== END 2020-08-23 08:00 | disposition home or self-care (01) | DRG 330 ==
LOC: 4TH 06:01 → UNDOADMIN 06:01 → 4TH 12:44
PROVIDERS: ADMIT Surgery; ATTEND Surgery
PROC: 0WBH0ZZ Excision of Retroperitoneum, Open Approach (ICD-10-PCS; 2020-08-16)
PROC: 0T778DZ Dilation of Left Ureter with Intraluminal Device, Via Natural or Artificial Opening Endoscopic (ICD-10-PCS; 2020-08-16)
PROC: 0DJD4ZZ Inspection of Lower Intestinal Tract, Percutaneous Endoscopic Approach (ICD-10-PCS; 2020-08-16)
PROC: 0DTM0ZZ Resection of Descending Colon, Open Approach (ICD-10-PCS; principal; 2020-08-16 07:55)
PROC: 0DBL0ZZ Excision of Transverse Colon, Open Approach (ICD-10-PCS; 2020-08-16 07:55)
DX: C18.6 Malignant neoplasm of descending colon (principal); C78.6 Secondary malignant neoplasm of retroperitoneum and peritoneum; K63.0 Abscess of intestine; K56.7 Ileus, unspecified; K21.9 Gastro-esophageal reflux disease without esophagitis; E66.9 Obesity, unspecified; J30.2 Other seasonal allergic rhinitis; Z68.31 Body mass index [BMI] 31.0-31.9, adult; Z87.891 Personal history of nicotine dependence
CPT/HCPCS: 36415; 74019; 80048; 80053; 83735; 84100; 85025; 85027; 86850; 86900; 86901; 87081; 88304; 88307; 88309; 94664; 94760

== ENCOUNTER 2020-09-12 05:33 | Outpatient (RCR) | payer BC ==
[~2020-09-12] VITALS: Ht 195.6 cm; Wt 110.0 kg
[~2020-09-12 05:33] MED LIST changes: -BARIUM SUSPENSION 2.1% (VANILLA SILQ) 450 ML PO ONE; -CATHETER FLUSH 10 ML SYR IV PRN; -HOLD METFORMIN - RECEIVED CONTRAST 20 ML VIAL IV SCH; -IOHEXOL 350 MG/ML 100 ML (OMNIPAQUE 350) VIAL IV ONE; -NS 100 ML (IVPB) BAG IV ONE
== END 2020-09-12 10:28 | disposition home or self-care (01) ==
LOC: PREOP 05:33
PROVIDERS: ATTEND Surgery
DX: Z01.812 Encounter for preprocedural laboratory examination (principal); C18.9 Malignant neoplasm of colon, unspecified; Z20.828 Contact with and (suspected) exposure to other viral communicable diseases
CPT/HCPCS: 87635

== ENCOUNTER → 2020-09-12 | Outpatient (CLI) | payer BC ==
[~2020-09-12] MED LIST changes: +ACHD5005 PO; +BARIUM SUSPENSION 2.1% (VANILLA SILQ) 450 ML PO ONE; +CATHETER FLUSH 10 ML SYR IV PRN; +DIPH25TA65 PO; +HOLD METFORMIN - RECEIVED CONTRAST 20 ML VIAL IV SCH; +IBUP-2473 PO; +IOHEXOL 350 MG/ML 100 ML (OMNIPAQUE 350) VIAL IV ONE; +MULT-1136 PO; +NS 100 ML (IVPB) BAG IV ONE
--- NOTE | 2020-09-12 10:34 | Diagnostic Imaging Report ---
PROCEDURE: CT chest, abdomen, and pelvis with contrast. TECHNIQUE: Multiple contiguous axial images were obtained through the chest, abdomen, and pelvis after the administration of intravenous contrast. Auto Exposure Controls were utilized during the CT exam to meet ALARA standards for radiation dose reduction. INDICATION: Adenocarcinoma of the colon, abdominal pain. FINDINGS: The previous CT abdomen/pelvis exam of 08/07/2020 noted marked wall thickening and a probable mass involving the mid descending colon. There was adjacent edema/inflammation as well. Reportedly in the interval since the prior exam, the patient has undergone a surgical procedure with resection of the previously described mass. The surgical anastomosis is again visualized on this exam. The mass is no longer evident but there continues to be edema/inflammation of the pericolonic fat in this region. This could be a sequela of the patient's prior surgical procedure. The possibility that there is element of acute edema/inflammation secondary to colitis should also be considered. There is no acute abnormality of the abdomen or pelvis noted otherwise. The urinary bladder is not well-distended but there does seem to be some increased density within the bladder and the bladder wall appears slightly thickened. The possibility that there is an element of cystitis present should also be considered. The prostate gland is not enlarged. The right pelvic kidney seen previously is again evident. The left kidney is unremarkable aside from the roughly 4 cm cyst noted on the prior exam. The liver is homogeneous and borderline enlarged. The low density appearance of the liver does suggest fatty metamorphosis. The spleen, pancreas, adrenals, gallbladder, aorta, inferior vena cava, and portal vein show no sign of an acute abnormality. The stomach is partially filled with oral contrast and difficult to assess. The images through the thorax show the heart size to be within normal limits. Coronary artery calcifications are evident. The small pericardial effusion seen previously is again evident and no different. The aorta is not abnormally dilated and there is no sign of a dissection. The pulmonary arteries are not well opacified and consequently difficult to assess for a pulmonary embolus. There is no obvious defect to suggest a pulmonary embolus. There is no mediastinal or hilar adenopathy. The thyroid gland is generally unremarkable. There is a minute 2 to 3 mm area of low density in the right lobe of the thyroid. The lungs are generally clear. There is no sign of failure, pneumonia, or pleural effusion. There is no parenchymal lung mass to suggest metastatic disease either. The bone windows are unremarkable for a fracture or destructive lesion. IMPRESSION: 1. In the interval since the prior exam, the patient has undergone a surgical procedure and the mass involving the midportion of the descending colon has been resected; however, there is still edema/inflammation of the pericolonic fat in this region. Whether this is a sequela of the patient's prior surgery or whether this is related to mild acute colitis is unclear. Clinical followup is recommended. 2. The bladder is not well distended and difficult to assess. There does seem to be some increased density within the bladder and the bladder wall appears to be thickened. The possibility that there is an element of cystitis present should be considered. 3. There is no acute abnormality of the abdomen or pelvis noted otherwise. 4. There is no acute cardiopulmonary abnormality identified and there is no sign of a parenchymal lung mass to suggest metastatic disease. 5. These results will be discussed with Dr. Loya. Dictated by: Dictated on workstation # [id number]
== END ==
LOC: RAD 08:35
PROVIDERS: ATTEND Internal Medicine Hematology & Oncology
DX: C18.9 Malignant neoplasm of colon, unspecified (principal)
CPT/HCPCS: 71260; 74177

== ENCOUNTER 2020-09-14 06:04 | Day surgery (SDC) | payer BC ==
[2020-09-14] VITALS (7 sets, daily range): BP systolic 107–123; BP diastolic 67–80
[~2020-09-14] VITALS: Ht 195.6 cm; Wt 110.0 kg
[2020-09-14] MEDS ORDERED: PROPOFOL INJECTION 50 ML IV ONE (06:29)
[2020-09-14] MEDS ORDERED: MIDAZOLAM 2 MG/2 ML (VERSED) VIAL ONE (06:29)
[2020-09-14] MEDS ORDERED: LACTATED RINGERS 1,000 ML IV PRN (06:35)
[2020-09-14] MEDS ORDERED: ceFAZolin 2 GM IV Premixed 50 ML IV ONE (06:45)
[2020-09-14] MEDS ORDERED: HEParin (CENTRAL IV FLUSH) 500 UNIT/5 ML SYR ONE (06:58)
[2020-09-14] MEDS ORDERED: 0.9% SODIUM CHLORIDE PF INJ 20 ML VIAL ONE (06:58)
[2020-09-14] MEDS ORDERED: BUP/EPI 0.5% 1:200,000 (SENSORCAINE) 30 ML VIAL ONE (06:58)
[2020-09-14] MEDS ORDERED: CATHETER FLUSH 10 ML SYR IV PRN (07:00)
--- NOTE | 2020-09-14 08:02 | Progress Note-Pre Operative ---
Pre-Operative Progress Note H&P Reviewed The H&P was reviewed, patient examined and no changes noted. Date Seen by Provider: Sep 14, 2020 Time Seen by Provider: 08:02 Date H&P Reviewed: Sep 14, 2020 Time H&P Reviewed: 08:02 Pre-Operative Diagnosis: colon cancer BENJI SAINI DO Sep 14, 2020 08:02
--- NOTE | 2020-09-14 08:46 | Progress Note-Post Operative ---
Post-Operative Progess Note Surgeon (s)/Lepidopterist (s) Surgeon BENJI SAINI DO Lepidopterist: na Pre-Operative Diagnosis colon cancer Post-Operative Diagnosis same Procedure & Operative Findings Date of Procedure 09/14/20 Procedure Performed/Findings PROCEDURE: Right internal jugular port placement using ultrasound guidance. COMPLICATIONS: None. INDICATIONS: The patient is a 54 year old male with colon cancer. Patient understands the risks and benefits of port placement and wished to proceed with the procedure. Consent was signed on the chart. PROCEDURE: The patient was taken to the operating suite, was prepped and draped in the sterile fashion. A surgical pause was performed. Ultrasound was used to locate the internal jugular vein. Once located anesthetic was infiltrated above it. Using micro-access kit, the right internal vein was accessed. Dark nonpulsatile blood was withdrawn. The wire was inserted. Fluoroscopy assured proper placement. The needle was removed. The micro-access dilator was advanced over the wire and the wire was removed. The regular wire was inserted and fluoroscopy assured proper placement. The wire was then secured. Local anesthetic was used to anesthetize from the neck for tunneling down to the right chest and for pocket creation. A 15 blade scalpel was used to make an incision over the right chest. Cautery was used to dissect down to the pectoral fascia. A pocket was created with blunt dissection. The dilator sheath was then advanced over the wire under fluoroscopy and the dilator and wire were removed. The Groshong catheter was inserted through the sheath and the sheath was then removed. The Groshong wire was removed. The catheter was then tunneled to the right chest pocket. Fluoroscopy was used to cut to length and this was then attached to the port which was then placed within the pocket. The port was then accessed without difficulty. It was then flushed with saline and then heparin. The subcutaneous tissues were then reapproximated using 3-0 Vicryl. The areas were then washed and dried. Skin Affix was placed over incision. The insertion point of the neck Skin Affix was placed over the incision. The patient tolerated the procedure well without complication and was taken to recovery room in stable condition. Chest x-ray is pending. Anesthesia Type mac c local Estimated Blood Loss Estimated blood loss (mL): min Specimens/Packing Specimens Removed BENJI Marino DO Sep 14, 2020 08:46
--- NOTE | 2020-09-14 08:47 | Discharge Inst-Simple/Standard ---
Discharge Inst-Standard Patient Instructions/Follow Up Plan of Care/Instructions/FU: 2 weeks juan Activity as Tolerated: No Discharge Diet: Regular Diet Other Inst to Patient Follow up Appt: Make appointment for 2 week. Instructions: No lifting greater than 10 pounds. No strenuous activity. Limit use of right arm. May shower in 24 hours, no tub bath or soaking. Use incentive spirometer at home as directed. No Smoking Skin/Wound Care: You have special glue over your incision that will fall off on it's own. Place ice pack on 15 min and then off 30 min and repeat to decrease swelling/discomfort. Symptoms to Report: Appetite Changes, Extremity Discoloration, Numbness/Tingling, Swelling Increased, Bleeding Excessive, Eyesight Changes, Pain Increased, Urine Color Change, Constipation(Persistent), Fever over 101 degree F, Pain/Pressure in chest, Urinating Difficulty, Cough Up/Vomit Blood, Heart Beat Irreg/Pounding, Pain/Pressure in jaw, Vaginal Bleeding Increase, Cramps in feet or legs, Lightheadedness, Pain/Pressure in shoulder, Diarrhea(Persistent), Memory Changes Suddenly, Questions/Concerns, Weight gain consecutive days, Dizziness/Fainting, Nausea/Vomiting, Shortness of Breath, Weight gain over 2 pounds If questions or concerns contact your physician Or seek help at emergency department. BENJI SAINI DO Sep 14, 2020 08:47
--- NOTE | 2020-09-14 09:01 | Anesthesia-General Post-Op ---
MAC Patient Condition Mental Status/LOC: Same as Preop Cardiovascular: Satisfactory Nausea/Vomiting: Absent Respiratory: Satisfactory Pain: Controlled Complications: Absent Post Op Complications Complications None Follow Up Care/Instructions Patient Instructions None needed. Anesthesiology Discharge Order Discharge Order Patient is doing well, no complaints, stable vital signs, no apparent adverse anesthesia problems. No complications reported per nursing. RAMON MCCANN CRNA Sep 14, 2020 09:01
--- NOTE | 2020-09-14 09:33 | Diagnostic Imaging Report ---
INDICATION: Port-A-Cath placement Intraoperative fluoroscopy used during Port-A-Cath placement in surgery. Intraoperative fluoroscopy views demonstrate Port-A-Cath over the right chest with catheter in the right internal jugular vein and catheter tip overlying the distal SVC. The study is otherwise limited. 26 seconds of fluoroscopy time was used in surgery. IMPRESSION: Intraoperative fluoroscopy used during Port-A-Cath placement as above. Dictated by: Dictated on workstation # [id number]
--- NOTE | 2020-09-15 11:41 | Diagnostic Imaging Report ---
INDICATION: Postop. FINDINGS: Right IJ catheter tip projects over the lower SVC. No pneumothorax. Lungs are clear. IMPRESSION: Catheter in good position. No pneumothorax. Dictated by: Dictated on workstation # [id number]
== END 2020-09-14 10:15 | disposition home or self-care (01) ==
LOC: SDC 06:04
PROVIDERS: ATTEND Surgery
DX: C18.9 Malignant neoplasm of colon, unspecified (principal); I87.2 Venous insufficiency (chronic) (peripheral); K21.9 Gastro-esophageal reflux disease without esophagitis; Z87.891 Personal history of nicotine dependence; Z11.2 Encounter for screening for other bacterial diseases; Z88.2 Allergy status to sulfonamides
CPT/HCPCS: 36561; 71045; 76000; 87081; C1788

== ENCOUNTER → 2020-11-02 | Outpatient (CLI) | payer BC | LOC: CARD 09:00 | PROVIDERS: ATTEND Internal Medicine Cardiovascular Disease | DX: R00.2 Palpitations (principal) | CPT/HCPCS: 93306 ==

== ENCOUNTER → 2020-11-06 | Outpatient (CLI) | payer BC ==
[~2020-11-06] VITALS: Ht 195 cm; Wt 106.0 kg
[~2020-11-06] MED LIST changes: +CATHETER FLUSH 10 ML SYR IV PRN
[2020-11-06 09:07] VITALS: BP 124/65
--- NOTE | 2020-11-06 13:11 | Cardiology Stress Test Report ---
Stress Test Report Date of Procedure/Referring: Date of Procedure: Nov 06, 2020 PCP Thania Koroma MD Admitting Physician Herrera Ledbetter MD Indications: palpitations Baseline Heart Rate: 94 Baseline Blood Pressure: Blood Pressure Systolic: 124 Blood Pressure Diastolic: 65 Vital Signs Date Time Temp Pulse Resp B/P (MAP) Pulse Ox O2 Delivery O2 Flow Rate FiO2 11/06/20 09:07 79 124/65 (84) Baseline Vital Signs Vital Signs Date Time Temp Pulse Resp B/P (MAP) Pulse Ox O2 Delivery O2 Flow Rate FiO2 11/06/20 09:07 79 124/65 (84) Baseline EKG: Baseline EKG: normal sinus rhythm Summary: After explaining the procedure and details to the patient, he signed the consent and was brought to the stress nuclear laboratory. Patient exercised on standard Baudilio protocol, EKG, heart rate and blood pressure were monitored continuously, resting and stress doses of radio tracer were injected, imaging was acquired and reviewed in the short axis, horizontal long axis and vertical long axis views Patient was able to exercise for a total of 5:30 minutes on Baudilio protocol, METs 7.1 Maximum heart rate 144 Maximum blood pressure 184/65 Stress EKG, Minimal nondiagnostic changes Recovery EKG, Return to baseline TID: 0.97 SSS: 7 SDS: 3 EF: 54 Conclusion: 1. Good exercise tolerance for a total of 5 minutes 30 seconds on standard Baudilio protocol, 7.1 METs achieving 86 percent of maximum expected heart rate 2. Appropriate heart rate and blood pressure response to exercise returned to baseline during recovery 3. Minimal nondiagnostic EKG changes with exercise returned to baseline during recovery 4. Diaphragmatic attenuation with mild decrease uptake involving the inferior wall with mild reversibility, probably secondary to the diaphragmatic attenuation, no significant ischemia or infarction on SPECT images 5. Normal left ventricular size, EF 54 percent THANIA KOROMA MD Nov 06, 2020 13:11
== END ==
LOC: CARD 07:45
PROVIDERS: ATTEND Internal Medicine Cardiovascular Disease
DX: R00.2 Palpitations (principal)
CPT/HCPCS: 78452; 93017; A9502

== ENCOUNTER 2020-11-20 09:16 | Outpatient (RCR) | payer BC ==
[2020-09-25 10:43] LABS: BASOPHILS % (AUTO) 0 % (0-10); EOSINOPHILS # (AUTO) 0.2 10^3/uL (0.0-0.3); EOSINOPHILS % (AUTO) 3 % (0-10); HEMATOCRIT 39 % (40-54); HEMOGLOBIN 11.9 g/dL (13.3-17.7); LYMPHOCYTES # (AUTO) 1.5 10^3/uL (1.0-4.0); LYMPHOCYTES % (AUTO) 31 % (12-44); MEAN CORPUSCULAR HEMOGLOBIN 26 pg (25-34); MEAN CORPUSCULAR HGB CONC 31 g/dL (32-36); MEAN CORPUSCULAR VOLUME 83 fL (80-99); MEAN PLATELET VOLUME 9.7 fL (9.0-12.2); MONOCYTES # (AUTO) 0.5 10^3/uL (0.0-1.0); MONOCYTES % (AUTO) 10 % (0-12); NEUTROPHILS # (AUTO) 2.7 10^3/uL (1.8-7.8); NEUTROPHILS % (AUTO) 56 % (42-75); PLATELET COUNT 262 10^3/uL (130-400); WHITE BLOOD COUNT 4.8 10^3/uL (4.3-11.0)
[2020-09-25 11:01] LABS: ALANINE AMINOTRANSFERASE 14 U/L (0-55); ALBUMIN 4.2 GM/DL (3.2-4.5); ALKALINE PHOSPHATASE 37 U/L (40-136); BILIRUBIN,TOTAL 0.6 MG/DL (0.1-1.0); BUN/CREATININE RATIO 10; CALCIUM 9.2 MG/DL (8.5-10.1); CARBON DIOXIDE 24 MMOL/L (21-32); CHLORIDE 107 MMOL/L (98-107); CREATININE SERUM 0.78 MG/DL (0.60-1.30); GFR ESTIMATED > 60; GLUCOSE 85 MG/DL (70-105); POTASSIUM 4.2 MMOL/L (3.6-5.0); SODIUM 140 MMOL/L (135-145)
[2020-10-10 10:37] LABS: BASOPHILS % (AUTO) 0 % (0-10); EOSINOPHILS # (AUTO) 0.1 10^3/uL (0.0-0.3); EOSINOPHILS % (AUTO) 2 % (0-10); HEMATOCRIT 40 % (40-54); HEMOGLOBIN 12.3 g/dL (13.3-17.7); LYMPHOCYTES # (AUTO) 1.4 10^3/uL (1.0-4.0); LYMPHOCYTES % (AUTO) 28 % (12-44); MEAN CORPUSCULAR HEMOGLOBIN 26 pg (25-34); MEAN CORPUSCULAR HGB CONC 31 g/dL (32-36); MEAN CORPUSCULAR VOLUME 83 fL (80-99); MEAN PLATELET VOLUME 9.2 fL (9.0-12.2); MONOCYTES # (AUTO) 0.6 10^3/uL (0.0-1.0); MONOCYTES % (AUTO) 11 % (0-12); NEUTROPHILS # (AUTO) 2.9 10^3/uL (1.8-7.8); NEUTROPHILS % (AUTO) 58 % (42-75); PLATELET COUNT 229 10^3/uL (130-400); WHITE BLOOD COUNT 4.9 10^3/uL (4.3-11.0)
[2020-10-10 11:04] LABS: ALANINE AMINOTRANSFERASE 19 U/L (0-55); ALBUMIN 4.4 GM/DL (3.2-4.5); ALKALINE PHOSPHATASE 44 U/L (40-136); BILIRUBIN,TOTAL 0.7 MG/DL (0.1-1.0); BUN/CREATININE RATIO 11; CALCIUM 9.5 MG/DL (8.5-10.1); CARBON DIOXIDE 23 MMOL/L (21-32); CHLORIDE 105 MMOL/L (98-107); CREATININE SERUM 0.83 MG/DL (0.60-1.30); GFR ESTIMATED > 60; GLUCOSE 83 MG/DL (70-105); POTASSIUM 4.1 MMOL/L (3.6-5.0); SODIUM 139 MMOL/L (135-145); TOTAL PROTEIN 7.1 GM/DL (6.4-8.2)
[2020-10-24 09:08] LABS: BASOPHILS % (AUTO) 1 % (0-10); EOSINOPHILS # (AUTO) 0.1 10^3/uL (0.0-0.3); EOSINOPHILS % (AUTO) 3 % (0-10); HEMATOCRIT 39 % (40-54); LYMPHOCYTES # (AUTO) 1.1 10^3/uL (1.0-4.0); LYMPHOCYTES % (AUTO) 29 % (12-44); MEAN CORPUSCULAR HEMOGLOBIN 26 pg (25-34); MEAN CORPUSCULAR HGB CONC 31 g/dL (32-36); MEAN CORPUSCULAR VOLUME 83 fL (80-99); MEAN PLATELET VOLUME 9.2 fL (9.0-12.2); MONOCYTES # (AUTO) 0.6 10^3/uL (0.0-1.0); MONOCYTES % (AUTO) 15 % (0-12); NEUTROPHILS % (AUTO) 52 % (42-75); PLATELET COUNT 166 10^3/uL (130-400); WHITE BLOOD COUNT 3.8 10^3/uL (4.3-11.0)
[2020-10-24 09:29] LABS: ALANINE AMINOTRANSFERASE 81 U/L (0-55); ALBUMIN 4.1 GM/DL (3.2-4.5); ALKALINE PHOSPHATASE 50 U/L (40-136); BILIRUBIN,TOTAL 0.5 MG/DL (0.1-1.0); BUN/CREATININE RATIO 9; CALCIUM 9.6 MG/DL (8.5-10.1); CARBON DIOXIDE 26 MMOL/L (21-32); CHLORIDE 108 MMOL/L (98-107); CREATININE SERUM 0.79 MG/DL (0.60-1.30); GFR ESTIMATED > 60; GLUCOSE 116 MG/DL (70-105); MAGNESIUM 1.7 MG/DL (1.6-2.4); POTASSIUM 4.1 MMOL/L (3.6-5.0); SODIUM 142 MMOL/L (135-145); TOTAL PROTEIN 6.9 GM/DL (6.4-8.2)
[2020-10-31 08:45] LABS: BASOPHILS % (AUTO) 1 % (0-10); EOSINOPHILS # (AUTO) 0.1 10^3/uL (0.0-0.3); EOSINOPHILS % (AUTO) 3 % (0-10); HEMATOCRIT 38 % (40-54); HEMOGLOBIN 11.9 g/dL (13.3-17.7); LYMPHOCYTES # (AUTO) 0.8 10^3/uL (1.0-4.0); LYMPHOCYTES % (AUTO) 44 % (12-44); MEAN CORPUSCULAR HEMOGLOBIN 26 pg (25-34); MEAN CORPUSCULAR HGB CONC 31 g/dL (32-36); MEAN CORPUSCULAR VOLUME 83 fL (80-99); MEAN PLATELET VOLUME 9.7 fL (9.0-12.2); MONOCYTES # (AUTO) 0.2 10^3/uL (0.0-1.0); MONOCYTES % (AUTO) 12 % (0-12); NEUTROPHILS # (AUTO) 0.7 10^3/uL (1.8-7.8); NEUTROPHILS % (AUTO) 38 % (42-75); PLATELET COUNT 138 10^3/uL (130-400); WHITE BLOOD COUNT 1.8 10^3/uL (4.3-11.0)
[2020-10-31 09:13] LABS: BUN/CREATININE RATIO 9; CALCIUM 9.2 MG/DL (8.5-10.1); CARBON DIOXIDE 27 MMOL/L (21-32); CHLORIDE 105 MMOL/L (98-107); CREATININE SERUM 0.77 MG/DL (0.60-1.30); GFR ESTIMATED > 60; GLUCOSE 98 MG/DL (70-105); SODIUM 141 MMOL/L (135-145)
[2020-11-07 12:52] LABS: BASOPHILS % (AUTO) 1 % (0-10); EOSINOPHILS # (AUTO) 0.1 10^3/uL (0.0-0.3); EOSINOPHILS % (AUTO) 3 % (0-10); HEMATOCRIT 38 % (40-54); HEMOGLOBIN 12.1 g/dL (13.3-17.7); LYMPHOCYTES # (AUTO) 1.3 10^3/uL (1.0-4.0); LYMPHOCYTES % (AUTO) 25 % (12-44); MEAN CORPUSCULAR HEMOGLOBIN 26 pg (25-34); MEAN CORPUSCULAR HGB CONC 32 g/dL (32-36); MEAN CORPUSCULAR VOLUME 82 fL (80-99); MEAN PLATELET VOLUME 9.6 fL (9.0-12.2); MONOCYTES # (AUTO) 0.7 10^3/uL (0.0-1.0); MONOCYTES % (AUTO) 15 % (0-12); NEUTROPHILS # (AUTO) 2.8 10^3/uL (1.8-7.8); NEUTROPHILS % (AUTO) 56 % (42-75); PLATELET COUNT 156 10^3/uL (130-400); WHITE BLOOD COUNT 4.9 10^3/uL (4.3-11.0)
[2020-11-07 13:24] LABS: ALANINE AMINOTRANSFERASE 46 U/L (0-55); ALBUMIN 4.1 GM/DL (3.2-4.5); ALKALINE PHOSPHATASE 45 U/L (40-136); BILIRUBIN,TOTAL 0.5 MG/DL (0.1-1.0); BUN/CREATININE RATIO 10; CALCIUM 9.3 MG/DL (8.5-10.1); CARBON DIOXIDE 22 MMOL/L (21-32); CHLORIDE 106 MMOL/L (98-107); CREATININE SERUM 0.78 MG/DL (0.60-1.30); GFR ESTIMATED > 60; GLUCOSE 99 MG/DL (70-105); POTASSIUM 4.1 MMOL/L (3.6-5.0); SODIUM 139 MMOL/L (135-145); TOTAL PROTEIN 7.2 GM/DL (6.4-8.2)
[~2020-11-20] VITALS: Ht 195.6 cm; Wt 110.7 kg
[~2020-11-20 09:16] MED LIST changes: -CATHETER FLUSH 10 ML SYR IV PRN; +D5W 500 ML IV (CANCER CTR) 500 ML IV SCH; +FAMOTIDINE 20MG/2ML IV (CANCER CTR) IV SCH; +FOSAPREPITANT (CANCER CENTER) 150 MG in NS (IVPB) CANCER CENTER ONLY 150 ML IV SCH; +LEUCOVORIN CALCIUM 500 MG, LEUCOVORIN CALCIUM 100 MG in D5W 250 ML IVPB (CANCER CTR) 25... IV SCH; +LEUCOVORIN CALCIUM 500 MG, LEUCOVORIN CALCIUM 200 MG, LEUCOVORIN CALCIUM 100 MG in D5W ... IV SCH; +OXALIPLATIN 170 MG in D5W 250 ML IVPB (CANCER CTR) 250 ML IV SCH; +diphenhydrAMINE 25 MG TAB (BENADRYL) CANCER CENTER PO SCH
== END 2020-11-27 12:43 | disposition home or self-care (01) ==
LOC: ONC 09:16
PROVIDERS: ATTEND Internal Medicine Hematology & Oncology
DX: C18.6 Malignant neoplasm of descending colon (principal); N28.1 Cyst of kidney, acquired; Z86.59 Personal history of other mental and behavioral disorders; Z80.9 Family history of malignant neoplasm, unspecified
CPT/HCPCS: 36591; 80048; 80053; 82378; 83735; 85025; 96367; 96368; 96375; 96411; 96413; 96416; 99213

== ENCOUNTER 2021-02-06 09:22 | Outpatient (RCR) | payer BC ==
[2020-11-28 09:06] LABS: BASOPHILS % (AUTO) 1 % (0-10); EOSINOPHILS # (AUTO) 0.1 10^3/uL (0.0-0.3); EOSINOPHILS % (AUTO) 3 % (0-10); HEMATOCRIT 38 % (40-54); LYMPHOCYTES # (AUTO) 1.2 10^3/uL (1.0-4.0); LYMPHOCYTES % (AUTO) 33 % (12-44); MEAN CORPUSCULAR HEMOGLOBIN 26 pg (25-34); MEAN CORPUSCULAR HGB CONC 32 g/dL (32-36); MEAN CORPUSCULAR VOLUME 82 fL (80-99); MEAN PLATELET VOLUME 8.9 fL (9.0-12.2); MONOCYTES # (AUTO) 0.5 10^3/uL (0.0-1.0); MONOCYTES % (AUTO) 13 % (0-12); NEUTROPHILS # (AUTO) 1.8 10^3/uL (1.8-7.8); NEUTROPHILS % (AUTO) 51 % (42-75); PLATELET COUNT 170 10^3/uL (130-400); WHITE BLOOD COUNT 3.5 10^3/uL (4.3-11.0)
[2020-11-28 09:26] LABS: ALANINE AMINOTRANSFERASE 46 U/L (0-55); ALBUMIN 3.9 GM/DL (3.2-4.5); ALKALINE PHOSPHATASE 45 U/L (40-136); BILIRUBIN,TOTAL 0.4 MG/DL (0.1-1.0); BUN/CREATININE RATIO 13; CALCIUM 9.2 MG/DL (8.5-10.1); CARBON DIOXIDE 25 MMOL/L (21-32); CHLORIDE 107 MMOL/L (98-107); GFR ESTIMATED > 60; GLUCOSE 118 MG/DL (70-105); SODIUM 141 MMOL/L (135-145); TOTAL PROTEIN 7.2 GM/DL (6.4-8.2)
[2020-12-12 09:07] LABS: BASOPHILS % (AUTO) 0 % (0-10); EOSINOPHILS # (AUTO) 0.1 10^3/uL (0.0-0.3); EOSINOPHILS % (AUTO) 2 % (0-10); HEMATOCRIT 37 % (40-54); HEMOGLOBIN 11.6 g/dL (13.3-17.7); LYMPHOCYTES # (AUTO) 1.1 10^3/uL (1.0-4.0); LYMPHOCYTES % (AUTO) 24 % (12-44); MEAN CORPUSCULAR HEMOGLOBIN 26 pg (25-34); MEAN CORPUSCULAR HGB CONC 31 g/dL (32-36); MEAN CORPUSCULAR VOLUME 82 fL (80-99); MEAN PLATELET VOLUME 9.5 fL (9.0-12.2); MONOCYTES # (AUTO) 0.6 10^3/uL (0.0-1.0); MONOCYTES % (AUTO) 14 % (0-12); NEUTROPHILS # (AUTO) 2.6 10^3/uL (1.8-7.8); NEUTROPHILS % (AUTO) 59 % (42-75); PLATELET COUNT 121 10^3/uL (130-400); WHITE BLOOD COUNT 4.5 10^3/uL (4.3-11.0)
[2020-12-12 09:22] LABS: ALANINE AMINOTRANSFERASE 34 U/L (0-55); ALBUMIN 3.8 GM/DL (3.2-4.5); ALKALINE PHOSPHATASE 47 U/L (40-136); BILIRUBIN,TOTAL 0.5 MG/DL (0.1-1.0); BUN/CREATININE RATIO 11; CALCIUM 9.4 MG/DL (8.5-10.1); CARBON DIOXIDE 23 MMOL/L (21-32); CHLORIDE 106 MMOL/L (98-107); CREATININE SERUM 0.81 MG/DL (0.60-1.30); GFR ESTIMATED > 60; GLUCOSE 104 MG/DL (70-105); POTASSIUM 4.3 MMOL/L (3.6-5.0); SODIUM 138 MMOL/L (135-145)
[2020-12-26 09:10] LABS: BASOPHILS % (AUTO) 1 % (0-10); EOSINOPHILS # (AUTO) 0.1 10^3/uL (0.0-0.3); EOSINOPHILS % (AUTO) 3 % (0-10); HEMATOCRIT 38 % (40-54); HEMOGLOBIN 12.3 g/dL (13.3-17.7); LYMPHOCYTES # (AUTO) 1.3 10^3/uL (1.0-4.0); LYMPHOCYTES % (AUTO) 27 % (12-44); MEAN CORPUSCULAR HEMOGLOBIN 26 pg (25-34); MEAN CORPUSCULAR HGB CONC 32 g/dL (32-36); MEAN CORPUSCULAR VOLUME 82 fL (80-99); MEAN PLATELET VOLUME 9.3 fL (9.0-12.2); MONOCYTES # (AUTO) 0.7 10^3/uL (0.0-1.0); MONOCYTES % (AUTO) 16 % (0-12); NEUTROPHILS # (AUTO) 2.5 10^3/uL (1.8-7.8); NEUTROPHILS % (AUTO) 54 % (42-75); PLATELET COUNT 103 10^3/uL (130-400); WHITE BLOOD COUNT 4.6 10^3/uL (4.3-11.0)
[2020-12-26 09:32] LABS: ALANINE AMINOTRANSFERASE 34 U/L (0-55); ALBUMIN 3.9 GM/DL (3.2-4.5); ALKALINE PHOSPHATASE 53 U/L (40-136); BILIRUBIN,TOTAL 0.5 MG/DL (0.1-1.0); BUN/CREATININE RATIO 12; CALCIUM 9.6 MG/DL (8.5-10.1); CARBON DIOXIDE 23 MMOL/L (21-32); CHLORIDE 106 MMOL/L (98-107); CREATININE SERUM 0.78 MG/DL (0.60-1.30); GFR ESTIMATED > 60; GLUCOSE 105 MG/DL (70-105); POTASSIUM 4.2 MMOL/L (3.6-5.0); SODIUM 139 MMOL/L (135-145); TOTAL PROTEIN 7.5 GM/DL (6.4-8.2)
[2021-01-02 09:42] LABS: BASOPHILS % (AUTO) 1 % (0-10); EOSINOPHILS # (AUTO) 0.1 10^3/uL (0.0-0.3); EOSINOPHILS % (AUTO) 3 % (0-10); HEMATOCRIT 39 % (40-54); HEMOGLOBIN 12.6 g/dL (13.3-17.7); LYMPHOCYTES # (AUTO) 0.9 10^3/uL (1.0-4.0); LYMPHOCYTES % (AUTO) 29 % (12-44); MEAN CORPUSCULAR HEMOGLOBIN 26 pg (25-34); MEAN CORPUSCULAR HGB CONC 32 g/dL (32-36); MEAN CORPUSCULAR VOLUME 82 fL (80-99); MEAN PLATELET VOLUME 10.8 fL (9.0-12.2); MONOCYTES # (AUTO) 0.5 10^3/uL (0.0-1.0); MONOCYTES % (AUTO) 18 % (0-12); NEUTROPHILS # (AUTO) 1.5 10^3/uL (1.8-7.8); NEUTROPHILS % (AUTO) 50 % (42-75); PLATELET COUNT 100 10^3/uL (130-400); WHITE BLOOD COUNT 3.1 10^3/uL (4.3-11.0)
[2021-01-16 09:29] LABS: BASOPHILS % (AUTO) 1 % (0-10); EOSINOPHILS # (AUTO) 0.1 10^3/uL (0.0-0.3); EOSINOPHILS % (AUTO) 3 % (0-10); HEMATOCRIT 39 % (40-54); HEMOGLOBIN 12.4 g/dL (13.3-17.7); LYMPHOCYTES # (AUTO) 0.9 10^3/uL (1.0-4.0); LYMPHOCYTES % (AUTO) 28 % (12-44); MEAN CORPUSCULAR HEMOGLOBIN 26 pg (25-34); MEAN CORPUSCULAR HGB CONC 32 g/dL (32-36); MEAN CORPUSCULAR VOLUME 83 fL (80-99); MONOCYTES # (AUTO) 0.5 10^3/uL (0.0-1.0); MONOCYTES % (AUTO) 13 % (0-12); NEUTROPHILS # (AUTO) 1.9 10^3/uL (1.8-7.8); NEUTROPHILS % (AUTO) 56 % (42-75); PLATELET COUNT 139 10^3/uL (130-400); WHITE BLOOD COUNT 3.4 10^3/uL (4.3-11.0)
[2021-01-16 09:55] LABS: ALANINE AMINOTRANSFERASE 36 U/L (0-55); ALBUMIN 3.9 GM/DL (3.2-4.5); ALKALINE PHOSPHATASE 56 U/L (40-136); BILIRUBIN,TOTAL 0.5 MG/DL (0.1-1.0); BUN/CREATININE RATIO 11; CALCIUM 9.8 MG/DL (8.5-10.1); CARBON DIOXIDE 25 MMOL/L (21-32); CHLORIDE 108 MMOL/L (98-107); CREATININE SERUM 0.83 MG/DL (0.60-1.30); GFR ESTIMATED > 60; GLUCOSE 113 MG/DL (70-105); MAGNESIUM 1.9 MG/DL (1.6-2.4); POTASSIUM 4.2 MMOL/L (3.6-5.0); SODIUM 141 MMOL/L (135-145); TOTAL PROTEIN 7.5 GM/DL (6.4-8.2)
[~2021-02-06] VITALS: Ht 195.6 cm; Wt 110.7 kg
[~2021-02-06 09:22] MED LIST changes: +FLUOROURACIL IV SCH; -LEUCOVORIN CALCIUM 500 MG, LEUCOVORIN CALCIUM 200 MG, LEUCOVORIN CALCIUM 100 MG in D5W ... IV SCH; +NS IV SCH; +OXALIPLATIN 100 MG, OXALIPLATIN (GENERIC) 50 MG in D5W 250 ML IVPB (CANCER CTR) 250 ML IV SCH
[2021-02-06 09:36] LABS: BASOPHILS % (AUTO) 2 % (0-10); EOSINOPHILS # (AUTO) 0.1 10^3/uL (0.0-0.3); EOSINOPHILS % (AUTO) 4 % (0-10); HEMATOCRIT 39 % (40-54); HEMOGLOBIN 12.1 g/dL (13.3-17.7); LYMPHOCYTES # (AUTO) 0.9 10^3/uL (1.0-4.0); LYMPHOCYTES % (AUTO) 38 % (12-44); MEAN CORPUSCULAR HEMOGLOBIN 26 pg (25-34); MEAN CORPUSCULAR HGB CONC 31 g/dL (32-36); MEAN CORPUSCULAR VOLUME 83 fL (80-99); MEAN PLATELET VOLUME 8.6 fL (9.0-12.2); MONOCYTES # (AUTO) 0.5 10^3/uL (0.0-1.0); MONOCYTES % (AUTO) 19 % (0-12); NEUTROPHILS # (AUTO) 0.9 10^3/uL (1.8-7.8); NEUTROPHILS % (AUTO) 37 % (42-75); PLATELET COUNT 142 10^3/uL (130-400); WHITE BLOOD COUNT 2.3 10^3/uL (4.3-11.0)
[2021-02-06 09:54] LABS: ALANINE AMINOTRANSFERASE 42 U/L (0-55); ALBUMIN 3.9 GM/DL (3.2-4.5); ALKALINE PHOSPHATASE 68 U/L (40-136); BILIRUBIN,TOTAL 0.6 MG/DL (0.1-1.0); BUN/CREATININE RATIO 13; CALCIUM 9.5 MG/DL (8.5-10.1); CARBON DIOXIDE 23 MMOL/L (21-32); CHLORIDE 107 MMOL/L (98-107); CREATININE SERUM 0.79 MG/DL (0.60-1.30); GFR ESTIMATED > 60; GLUCOSE 118 MG/DL (70-105); MAGNESIUM 1.8 MG/DL (1.6-2.4); POTASSIUM 4.1 MMOL/L (3.6-5.0); SODIUM 139 MMOL/L (135-145); TOTAL PROTEIN 7.5 GM/DL (6.4-8.2)
== END 2021-02-26 | disposition home or self-care (01) ==
LOC: ONC 09:22
PROVIDERS: ATTEND Internal Medicine Hematology & Oncology
DX: Z51.11 Encounter for antineoplastic chemotherapy (principal); C18.6 Malignant neoplasm of descending colon; D69.6 Thrombocytopenia, unspecified; D64.9 Anemia, unspecified; Z86.59 Personal history of other mental and behavioral disorders; Z80.9 Family history of malignant neoplasm, unspecified
CPT/HCPCS: 36591; 80053; 82728; 83540; 83735; 85025; 96367; 96368; 96375; 96411; 96413

== ENCOUNTER → 2021-05-11 | Outpatient (CLI) | payer BC ==
[~2021-05-11] MED LIST changes: -D5W 500 ML IV (CANCER CTR) 500 ML IV SCH; -FAMOTIDINE 20MG/2ML IV (CANCER CTR) IV SCH; -FLUOROURACIL IV SCH; -FOSAPREPITANT (CANCER CENTER) 150 MG in NS (IVPB) CANCER CENTER ONLY 150 ML IV SCH; -LEUCOVORIN CALCIUM 500 MG, LEUCOVORIN CALCIUM 100 MG in D5W 250 ML IVPB (CANCER CTR) 25... IV SCH; -NS IV SCH; -OXALIPLATIN 100 MG, OXALIPLATIN (GENERIC) 50 MG in D5W 250 ML IVPB (CANCER CTR) 250 ML IV SCH; -OXALIPLATIN 170 MG in D5W 250 ML IVPB (CANCER CTR) 250 ML IV SCH; -diphenhydrAMINE 25 MG TAB (BENADRYL) CANCER CENTER PO SCH
--- NOTE | 2021-05-11 18:55 | Diagnostic Imaging Report ---
PROCEDURE: MR imaging cervical spine without contrast. TECHNIQUE: Multiplanar, multisequence MR imaging of the cervical spine was performed without contrast. DATE: May 11, 2021. COMPARISON: None. INDICATION: 55-year-old male, neck pain. FINDINGS: The alignment of the cervical spine is unremarkable. The T1 marrow signal is somewhat diffusely low in signal similar in intensity to skeletal muscle. There are Modic endplate degenerative related changes adjacent to the C6-C7 disc space. There is very mild disc height loss at this level. The additional disc heights are well preserved. There is increased signal within the central aspect of the cervical spinal cord spanning from the level of C5 through C6-C7. C2-C3: There is no disc bulge. The uncovertebral and facet joints are unremarkable. There is no foraminal narrowing. There is no spinal canal stenosis. C3-C4: There is no disc bulge. The uncovertebral and facet joints are unremarkable. There is no foraminal narrowing. There is no spinal canal stenosis. C4-C5: There is no disc bulge. The uncovertebral and facet joints are unremarkable. There is no foraminal narrowing. There is no spinal canal stenosis. C5-C6: There is no disc bulge. The uncovertebral and facet joints are unremarkable. There is no foraminal narrowing. There is no spinal canal stenosis. C6-C7: There is a small posterior disc osteophyte complex. There are mild bilateral uncovertebral degenerative changes. There is moderate bilateral foraminal narrowing. There is severe spinal canal stenosis. C7-T1: There is no disc bulge. The uncovertebral and facet joints are unremarkable. There is no foraminal narrowing. There is no spinal canal stenosis. IMPRESSION: 1. C6-C7 small posterior disc osteophyte complex with mild bilateral uncovertebral degenerative changes causing moderate bilateral foraminal narrowing and severe spinal stenosis. 2. 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 3. Diffusely low T1 marrow signal and signal intensity of the skeletal muscle. This can be seen with marrow reconversion in the setting of anemia although correlation is needed. Marrow replacing and infiltrating processes cannot be entirely excluded. Dictated on workstation # [id number]
== END ==
LOC: RAD 13:15
PROVIDERS: ATTEND Internal Medicine Hematology & Oncology
DX: C18.9 Malignant neoplasm of colon, unspecified (principal); M47.812 Spondylosis without myelopathy or radiculopathy, cervical region; M48.02 Spinal stenosis, cervical region; M25.78 Osteophyte, vertebrae
CPT/HCPCS: 72141

== ENCOUNTER → 2021-05-18 | Outpatient (CLI) | payer BC ==
--- NOTE | 2021-05-18 10:33 | Diagnostic Imaging Report ---
PROCEDURE: MRI right joint upper extremity without contrast. TECHNIQUE: Multiplanar, multisequence non contrast-enhanced MRI of the right upper extremity was accomplished. INDICATION: Right shoulder pain, no acute injury. History of colon cancer. COMPARISON: None FINDINGS: No acute fracture is seen in the right shoulder. There is mild motion artifact present. There are moderate degenerative changes in the acromioclavicular joint. There is a minimal glenohumeral joint effusion. There is a small amount of fluid in the subacromial subdeltoid bursa. The supraspinatus tendon demonstrates a high-grade partial-thickness bursal surface tear measuring 7 mm wide, with additional low-grade partial-thickness tearing at the bursal surface. The infraspinatus tendon appears intact. The teres minor tendon is intact. The subscapularis tendon demonstrates no acute abnormality. The long head of the biceps tendon is normal in course and signal. The glenoid labrum is suboptimally evaluated in the absence of intra-articular contrast. There does appear to be a tear at the posterior superior labrum, which may be degenerative. No para labral cyst is seen. There is mild subacromial spurring with flattening of the undersurface of the acromion. The coracoclavicular and coracoacromial ligaments appear intact. No muscular atrophy is seen. No soft tissue fluid collections or masses are identified. IMPRESSION: 1. Small high-grade partial thickness tear at the bursal surface of the supraspinatus tendon with additional low-grade partial-thickness tearing. No full-thickness tear seen. 2. Mild subacromial subdeltoid bursitis. 3. Tear at the posterior superior labrum, may be degenerative. 4. Moderate degenerative changes in the acromioclavicular joint with mild subacromial spurring. Dictated by: Dictated on workstation # [id number]
== END ==
LOC: RAD 08:00
PROVIDERS: ATTEND Internal Medicine Hematology & Oncology
DX: S46.811A Strain of other muscles, fascia and tendons at shoulder and upper arm level, right arm, initial encounter (principal); S43.431A Superior glenoid labrum lesion of right shoulder, initial encounter; M19.011 Primary osteoarthritis, right shoulder; X58.XXXA Exposure to other specified factors, initial encounter
CPT/HCPCS: 73221

== ENCOUNTER 2021-05-22 08:48 | Outpatient (RCR) | payer BC ==
[2021-02-27 09:16] LABS: BASOPHILS % (AUTO) 1 % (0-10); EOSINOPHILS # (AUTO) 0.1 10^3/uL (0.0-0.3); EOSINOPHILS % (AUTO) 4 % (0-10); HEMATOCRIT 38 % (40-54); HEMOGLOBIN 12.1 g/dL (13.3-17.7); LYMPHOCYTES # (AUTO) 1.1 10^3/uL (1.0-4.0); LYMPHOCYTES % (AUTO) 35 % (12-44); MEAN CORPUSCULAR HEMOGLOBIN 26 pg (25-34); MEAN CORPUSCULAR HGB CONC 32 g/dL (32-36); MEAN CORPUSCULAR VOLUME 82 fL (80-99); MEAN PLATELET VOLUME 9.1 fL (9.0-12.2); MONOCYTES # (AUTO) 0.5 10^3/uL (0.0-1.0); MONOCYTES % (AUTO) 17 % (0-12); NEUTROPHILS # (AUTO) 1.3 10^3/uL (1.8-7.8); NEUTROPHILS % (AUTO) 43 % (42-75); PLATELET COUNT 162 10^3/uL (130-400); WHITE BLOOD COUNT 3.1 10^3/uL (4.3-11.0)
[2021-02-27 09:34] LABS: ALANINE AMINOTRANSFERASE 42 U/L (0-55); ALKALINE PHOSPHATASE 65 U/L (40-136); BILIRUBIN,TOTAL 0.5 MG/DL (0.1-1.0); BUN/CREATININE RATIO 12; CALCIUM 9.7 MG/DL (8.5-10.1); CARBON DIOXIDE 23 MMOL/L (21-32); CHLORIDE 106 MMOL/L (98-107); CREATININE SERUM 0.77 MG/DL (0.60-1.30); GFR ESTIMATED > 60; GLUCOSE 86 MG/DL (70-105); MAGNESIUM 1.9 MG/DL (1.6-2.4); POTASSIUM 4.3 MMOL/L (3.6-5.0); SODIUM 140 MMOL/L (135-145); TOTAL PROTEIN 7.7 GM/DL (6.4-8.2)
[2021-03-20 09:09] LABS: BASOPHILS % (AUTO) 1 % (0-10); EOSINOPHILS # (AUTO) 0.1 10^3/uL (0.0-0.3); EOSINOPHILS % (AUTO) 3 % (0-10); HEMATOCRIT 39 % (40-54); HEMOGLOBIN 12.1 g/dL (13.3-17.7); LYMPHOCYTES % (AUTO) 36 % (12-44); MEAN CORPUSCULAR HEMOGLOBIN 26 pg (25-34); MEAN CORPUSCULAR HGB CONC 31 g/dL (32-36); MEAN CORPUSCULAR VOLUME 85 fL (80-99); MEAN PLATELET VOLUME 8.9 fL (9.0-12.2); MONOCYTES # (AUTO) 0.4 10^3/uL (0.0-1.0); MONOCYTES % (AUTO) 15 % (0-12); NEUTROPHILS # (AUTO) 1.3 10^3/uL (1.8-7.8); NEUTROPHILS % (AUTO) 45 % (42-75); PLATELET COUNT 145 10^3/uL (130-400); WHITE BLOOD COUNT 2.8 10^3/uL (4.3-11.0)
[2021-03-20 09:29] LABS: ALANINE AMINOTRANSFERASE 34 U/L (0-55); ALKALINE PHOSPHATASE 64 U/L (40-136); BILIRUBIN,TOTAL 0.5 MG/DL (0.1-1.0); BUN/CREATININE RATIO 15; CALCIUM 9.7 MG/DL (8.5-10.1); CARBON DIOXIDE 25 MMOL/L (21-32); CHLORIDE 105 MMOL/L (98-107); CREATININE SERUM 0.85 MG/DL (0.60-1.30); GFR ESTIMATED > 60; GLUCOSE 120 MG/DL (70-105); POTASSIUM 4.1 MMOL/L (3.6-5.0); SODIUM 139 MMOL/L (135-145); TOTAL PROTEIN 7.4 GM/DL (6.4-8.2)
[2021-04-10 09:49] LABS: BASOPHILS % (AUTO) 1 % (0-10); EOSINOPHILS # (AUTO) 0.1 10^3/uL (0.0-0.3); EOSINOPHILS % (AUTO) 4 % (0-10); HEMATOCRIT 39 % (40-54); HEMOGLOBIN 12.6 g/dL (13.3-17.7); LYMPHOCYTES # (AUTO) 1.1 10^3/uL (1.0-4.0); LYMPHOCYTES % (AUTO) 32 % (12-44); MEAN CORPUSCULAR HEMOGLOBIN 27 pg (25-34); MEAN CORPUSCULAR HGB CONC 32 g/dL (32-36); MEAN CORPUSCULAR VOLUME 84 fL (80-99); MEAN PLATELET VOLUME 9.1 fL (9.0-12.2); MONOCYTES # (AUTO) 0.5 10^3/uL (0.0-1.0); MONOCYTES % (AUTO) 14 % (0-12); NEUTROPHILS # (AUTO) 1.7 10^3/uL (1.8-7.8); NEUTROPHILS % (AUTO) 49 % (42-75); PLATELET COUNT 143 10^3/uL (130-400); WHITE BLOOD COUNT 3.4 10^3/uL (4.3-11.0)
[2021-04-10 10:11] LABS: ALANINE AMINOTRANSFERASE 42 U/L (0-55); ALBUMIN 3.9 GM/DL (3.2-4.5); ALKALINE PHOSPHATASE 58 U/L (40-136); BILIRUBIN,TOTAL 0.6 MG/DL (0.1-1.0); BUN/CREATININE RATIO 11; CALCIUM 9.5 MG/DL (8.5-10.1); CARBON DIOXIDE 25 MMOL/L (21-32); CHLORIDE 106 MMOL/L (98-107); GFR ESTIMATED > 60; GLUCOSE 97 MG/DL (70-105); POTASSIUM 4.3 MMOL/L (3.6-5.0); SODIUM 138 MMOL/L (135-145); TOTAL PROTEIN 7.3 GM/DL (6.4-8.2)
[2021-05-08 10:17] LABS: BASOPHILS % (AUTO) 1 % (0-10); EOSINOPHILS # (AUTO) 0.1 10^3/uL (0.0-0.3); EOSINOPHILS % (AUTO) 3 % (0-10); HEMATOCRIT 41 % (40-54); HEMOGLOBIN 13.1 g/dL (13.3-17.7); LYMPHOCYTES # (AUTO) 1.1 10^3/uL (1.0-4.0); LYMPHOCYTES % (AUTO) 27 % (12-44); MEAN CORPUSCULAR HEMOGLOBIN 27 pg (25-34); MEAN CORPUSCULAR HGB CONC 32 g/dL (32-36); MEAN CORPUSCULAR VOLUME 85 fL (80-99); MEAN PLATELET VOLUME 8.9 fL (9.0-12.2); MONOCYTES # (AUTO) 0.4 10^3/uL (0.0-1.0); MONOCYTES % (AUTO) 9 % (0-12); NEUTROPHILS # (AUTO) 2.5 10^3/uL (1.8-7.8); NEUTROPHILS % (AUTO) 61 % (42-75); PLATELET COUNT 132 10^3/uL (130-400); WHITE BLOOD COUNT 4.1 10^3/uL (4.3-11.0)
[2021-05-08 10:42] LABS: ALANINE AMINOTRANSFERASE 42 U/L (0-55); ALBUMIN 4.3 GM/DL (3.2-4.5); ALKALINE PHOSPHATASE 57 U/L (40-136); BILIRUBIN,TOTAL 0.7 MG/DL (0.1-1.0); BUN/CREATININE RATIO 10; CALCIUM 10.2 MG/DL (8.5-10.1); CARBON DIOXIDE 28 MMOL/L (21-32); CHLORIDE 105 MMOL/L (98-107); CREATININE SERUM 0.88 MG/DL (0.60-1.30); GFR ESTIMATED > 60; GLUCOSE 107 MG/DL (70-105); POTASSIUM 4.2 MMOL/L (3.6-5.0); SODIUM 142 MMOL/L (135-145); TOTAL PROTEIN 7.7 GM/DL (6.4-8.2)
[~2021-05-22] VITALS: Ht 195.6 cm; Wt 112.5 kg
[~2021-05-22 08:48] MED LIST changes: +D5W 500 ML IV (CANCER CTR) 500 ML IV SCH; +FAMOTIDINE 20MG/2ML IV (CANCER CTR) IV SCH; +FLUOROURACIL IV SCH; +FOSAPREPITANT (CANCER CENTER) 150 MG in NS (IVPB) CANCER CENTER ONLY 150 ML IV SCH; +LEUCOVORIN CALCIUM 500 MG, LEUCOVORIN CALCIUM 100 MG in D5W 250 ML IVPB (CANCER CTR) 25... IV SCH; +NS IV SCH; +OXALIPLATIN 100 MG, OXALIPLATIN (GENERIC) 20 MG in D5W 250 ML IVPB (CANCER CTR) 250 ML IV SCH; +OXALIPLATIN 100 MG, OXALIPLATIN (GENERIC) 50 MG in D5W 250 ML IVPB (CANCER CTR) 250 ML IV SCH
== END 2021-05-28 | disposition home or self-care (01) ==
LOC: ONC 08:48
PROVIDERS: ATTEND Internal Medicine Hematology & Oncology
DX: Z51.11 Encounter for antineoplastic chemotherapy (principal); C18.6 Malignant neoplasm of descending colon; D69.6 Thrombocytopenia, unspecified; D64.9 Anemia, unspecified; Z86.59 Personal history of other mental and behavioral disorders; Z80.9 Family history of malignant neoplasm, unspecified
CPT/HCPCS: 80053; 83735; 85025; 96367; 96368; 96375; 96411; 96413; 96521; G0463; 36591; 99213

== ENCOUNTER 2021-07-04 08:27 | Outpatient (RCR) | payer BC ==
[~2021-07-04 08:27] MED LIST changes: -D5W 500 ML IV (CANCER CTR) 500 ML IV SCH; -FAMOTIDINE 20MG/2ML IV (CANCER CTR) IV SCH; -FLUOROURACIL IV SCH; -FOSAPREPITANT (CANCER CENTER) 150 MG in NS (IVPB) CANCER CENTER ONLY 150 ML IV SCH; -LEUCOVORIN CALCIUM 500 MG, LEUCOVORIN CALCIUM 100 MG in D5W 250 ML IVPB (CANCER CTR) 25... IV SCH; -NS IV SCH; -OXALIPLATIN 100 MG, OXALIPLATIN (GENERIC) 20 MG in D5W 250 ML IVPB (CANCER CTR) 250 ML IV SCH; -OXALIPLATIN 100 MG, OXALIPLATIN (GENERIC) 50 MG in D5W 250 ML IVPB (CANCER CTR) 250 ML IV SCH
== END 2021-08-03 10:50 | disposition home or self-care (01) ==
PROVIDERS: ATTEND Nurse Practitioner
DX: M75.01 Adhesive capsulitis of right shoulder (principal); Z72.0 Tobacco use

== ENCOUNTER 2021-07-05 05:35 | Outpatient (CLI) | payer SELFPAY ==
[~2021-07-05] VITALS: Ht 195.6 cm; Wt 115.0 kg
== END 2021-07-05 11:18 | disposition home or self-care (01) ==
LOC: PREOP 05:35
PROVIDERS: ATTEND Surgery
DX: Z01.818 Encounter for other preprocedural examination (principal)

== ENCOUNTER → 2021-08-07 | Outpatient (CLI) | payer BC ==
[~2021-08-07] MED LIST changes: +BARIUM SUSPENSION 2.1% (VANILLA SILQ) 450 ML PO ONE; +HOLD METFORMIN - RECEIVED CONTRAST 20 ML VIAL IV SCH; +IOHEXOL 350 MG/ML 100 ML (OMNIPAQUE 350) VIAL IV ONE; +NS 100 ML (IVPB) BAG IV ONE
[2021-08-07] MEDS: CATHETER FLUSH 10 ML SYR IV PRN ×2 (10:09→10:10)
--- NOTE | 2021-08-07 11:14 | Diagnostic Imaging Report ---
PROCEDURE: CT chest, abdomen, and pelvis with contrast. TECHNIQUE: Multiple contiguous axial images were obtained through the chest, abdomen, and pelvis after the administration of intravenous contrast. Auto Exposure Controls were utilized during the CT exam to meet ALARA standards for radiation dose reduction. INDICATION: Malignant neoplasm of the colon. Study is performed for follow-up. Correlation is made prior CT from 09/12/2020. CT CHEST: Right chest wall port has the tip near the SVC right atrial junction. No axillary lymphadenopathy is detected. There are several mildly prominent lymph nodes in the mediastinum AP window but similar to prior exam. The largest lymph node measures 2.1 x 1.0 cm. No hilar lymphadenopathy is detected. There is no pericardial or pleural fluid. An ill-defined density has developed in the left lower lobe, image 85 measuring 2.2 x 1.5 cm. Remainder of lungs are clear. IMPRESSION: 1. There are mildly prominent mediastinal lymph nodes, similar in size to examination from one year earlier. Patient has developed a semisolid density in the left lower lobe which is indeterminate. This could possibly represent an area of infiltrate but semisolid mass lesion cannot be entirely excluded. Close follow-up to confirm stability or resolution is recommended. CT abdomen and pelvis: No focal liver mass is identified. Gallbladder is unremarkable. There is no biliary ductal dilatation. The pancreas is unremarkable. The spleen is enlarged at 15 cm. This compares with 11.5 cm on prior exam. No adrenal mass is identified. There is a cyst in the lower pole left kidney measuring 4.3 cm compared with 4.8 cm on prior exam. Patient does have a pelvic right kidney. Aorta is nonaneurysmal. No central retroperitoneal or mesenteric lymphadenopathy is detected. Postop changes in the left colon again noted. Previously noted area of inflammation adjacent to the left colon has resolved. There is no free fluid or fluid collection. The bladder is unremarkable. Prostate is unremarkable. No pelvic lymphadenopathy is detected. Bony structures are unremarkable. IMPRESSION: Development of splenomegaly since examination one year earlier. No definite abdominal or pelvic lymphadenopathy is detected. Dictated by: Dictated on workstation # [id number]
== END ==
LOC: RAD 10:15
PROVIDERS: ATTEND Internal Medicine Hematology & Oncology
DX: C18.9 Malignant neoplasm of colon, unspecified (principal); R16.2 Hepatomegaly with splenomegaly, not elsewhere classified
CPT/HCPCS: 71260; 74177

== ENCOUNTER 2021-09-27 14:18 | Outpatient (RCR) | payer BC ==
[2021-08-07 09:32] LABS: BASOPHILS % (AUTO) 0 % (0-10); EOSINOPHILS # (AUTO) 0.1 10^3/uL (0.0-0.3); EOSINOPHILS % (AUTO) 2 % (0-10); HEMATOCRIT 40 % (40-54); HEMOGLOBIN 13.3 g/dL (13.3-17.7); LYMPHOCYTES % (AUTO) 19 % (12-44); MEAN CORPUSCULAR HEMOGLOBIN 28 pg (25-34); MEAN CORPUSCULAR HGB CONC 33 g/dL (32-36); MEAN CORPUSCULAR VOLUME 85 fL (80-99); MEAN PLATELET VOLUME 9.1 fL (9.0-12.2); MONOCYTES # (AUTO) 0.6 10^3/uL (0.0-1.0); MONOCYTES % (AUTO) 12 % (0-12); NEUTROPHILS # (AUTO) 3.3 10^3/uL (1.8-7.8); NEUTROPHILS % (AUTO) 67 % (42-75); PLATELET COUNT 129 10^3/uL (130-400)
[2021-08-07 09:56] LABS: ALBUMIN 4.2 GM/DL (3.2-4.5); BILIRUBIN,TOTAL 0.7 MG/DL (0.1-1.0); CALCIUM 9.9 MG/DL (8.5-10.1); CREATININE SERUM 0.8 MG/DL (0.60-1.30); POTASSIUM 4.2 MMOL/L (3.6-5.0)
[~2021-09-27 14:18] MED LIST changes: -BARIUM SUSPENSION 2.1% (VANILLA SILQ) 450 ML PO ONE; -HOLD METFORMIN - RECEIVED CONTRAST 20 ML VIAL IV SCH; -IOHEXOL 350 MG/ML 100 ML (OMNIPAQUE 350) VIAL IV ONE; -NS 100 ML (IVPB) BAG IV ONE
[2021-09-27 14:53] LABS: BASOPHILS % (AUTO) 1 % (0-10); EOSINOPHILS # (AUTO) 0.1 10^3/uL (0.0-0.3); EOSINOPHILS % (AUTO) 1 % (0-10); HEMATOCRIT 40 % (40-54); HEMOGLOBIN 13.7 g/dL (13.3-17.7); LYMPHOCYTES # (AUTO) 0.8 10^3/uL (1.0-4.0); LYMPHOCYTES % (AUTO) 14 % (12-44); MEAN CORPUSCULAR HEMOGLOBIN 29 pg (25-34); MEAN CORPUSCULAR HGB CONC 34 g/dL (32-36); MEAN CORPUSCULAR VOLUME 87 fL (80-99); MEAN PLATELET VOLUME 8.8 fL (9.0-12.2); MONOCYTES # (AUTO) 0.4 10^3/uL (0.0-1.0); MONOCYTES % (AUTO) 6 % (0-12); NEUTROPHILS # (AUTO) 4.6 10^3/uL (1.8-7.8); NEUTROPHILS % (AUTO) 78 % (42-75); PLATELET COUNT 120 10^3/uL (130-400); WHITE BLOOD COUNT 5.9 10^3/uL (4.3-11.0)
[2021-09-27 15:13] LABS: ALBUMIN 4.3 GM/DL (3.2-4.5); BILIRUBIN,TOTAL 1.2 MG/DL (0.1-1.0); CALCIUM 9.7 MG/DL (8.5-10.1); CREATININE SERUM 0.88 MG/DL (0.60-1.30); TOTAL PROTEIN 7.4 GM/DL (6.4-8.2)
== END 2021-11-05 | disposition home or self-care (01) ==
LOC: ONC 14:18
PROVIDERS: ATTEND Internal Medicine Hematology & Oncology
DX: Z45.2 Encounter for adjustment and management of vascular access device (principal); C18.6 Malignant neoplasm of descending colon; D69.6 Thrombocytopenia, unspecified; D64.9 Anemia, unspecified; Z86.59 Personal history of other mental and behavioral disorders; Z80.9 Family history of malignant neoplasm, unspecified
CPT/HCPCS: 36591; 80053; 82378; 85025; 99213

== ENCOUNTER 2021-11-20 08:04 | Day surgery (SDC) | payer BC ==
[~2021-11-20] VITALS: Ht 195.6 cm; Wt 118.5 kg
[~2021-11-20 08:04] MED LIST changes: +ASCO500C18 PO; +MV-M1TAB20 PO; +OMG1KC PO; +POLY17PO6 PO
[2021-11-20] MEDS ORDERED: LACTATED RINGERS 1,000 ML IV ONE (08:08)
[2021-11-20] MEDS ORDERED: LACTATED RINGERS 1,000 ML IV STA (08:09)
[2021-11-20 08:20] VITALS: BP 118/71
[2021-11-20] MEDS ORDERED: MIDAZOLAM 2 MG/2 ML (VERSED) VIAL ONE (09:37)
[2021-11-20] MEDS ORDERED: PROPOFOL INJECTION 50 ML IV ONE ×2 (09:38→09:53)
[2021-11-20 10:11] VITALS: BP 119/72
[2021-11-20 10:16] VITALS: BP 121/72
[2021-11-20 10:20] VITALS: BP 133/68
--- NOTE | 2021-11-20 10:23 | Progress Note-Post Operative ---
Post-Operative Progess Note Surgeon (s)/Transfer Driver (s) Surgeon BENJI SAINI DO Transfer Driver: na Pre-Operative Diagnosis hx colon cancer Post-Operative Diagnosis colon polyps Procedure & Operative Findings Date of Procedure 11/20/21 Procedure Performed/Findings colonoscopy with hot bx polypectomy x 4 Anesthesia Type per bull float finisher Estimated Blood Loss Estimated blood loss (mL): none Specimens/Packing Specimens Removed colon polyps BENJI SAINI DO Nov 20, 2021 10:23
[2021-11-20 10:50] VITALS: BP 130/76
[2021-11-20 11:05] VITALS: BP 130/76
--- NOTE | 2021-11-20 13:33 | Anesthesia-General Post-Op ---
MAC Patient Condition Mental Status/LOC: Same as Preop Cardiovascular: Satisfactory Nausea/Vomiting: Absent Respiratory: Satisfactory Pain: Controlled Complications: Absent Post Op Complications Complications None Follow Up Care/Instructions Patient Instructions None needed. Anesthesiology Discharge Order Discharge Order Patient is doing well, no complaints, stable vital signs, no apparent adverse anesthesia problems. No complications reported per nursing. KEVIN SCHWARTZ CRNA Nov 20, 2021 13:33
--- NOTE | 2021-11-20 17:47 | OPERATIVE REPORT ---
DATE OF SERVICE: 11/20/2021 PREOPERATIVE DIAGNOSIS: History of colon cancer. POSTOPERATIVE DIAGNOSIS: Colon polyps. PROCEDURES PERFORMED: Colonoscopy with hot biopsy polypectomy x4. SURGEON: Benji Judge DO. ANESTHESIA: Per WOOL HAT FINISHER. ESTIMATED BLOOD LOSS: None. COMPLICATIONS: None. INDICATIONS FOR PROCEDURE: The patient is a 56-year-old male with history of colon cancer, needing a completion colonoscopy. He understands risks and benefits of procedure and wishes to proceed. Consent was signed in the chart. DESCRIPTION OF PROCEDURE: The patient was taken to endoscopy suite and placed in the left lateral recumbent position. Timeout was performed. Digital rectal exam was performed. No palpable polyps, masses or ulcerations. Scope was inserted in the rectum and advanced all the way to cecum with minimal difficulty. Prep was adequate. Scope was slowly retracted back. No polyps, masses or ulcerations in the cecum, ascending, transverse, and descending colon. In the sigmoid colon, a small polyp was present, which hot biopsy polypectomy was performed. At the anastomosis, there were two other polyps, which hot biopsy polypectomy was performed. Scope was then continuously and slowly retracted back and another polyp was present, which hot biopsy polypectomy was performed. Scope was then continuously and slowly retracted back in the rectum, where it was inserted and retracted multiple times, noting no other pathology. Scope was then slowly retracted back until completely removed. The patient tolerated procedure well without any complications and taken to the recovery room in stable condition. RECOMMENDATIONS: The patient will need a repeat colonoscopy in two years, at intervals of one, three and five post colon resection. Job ID: [id number] DocumentID: [id number] Dictated Date: 11/20/2021 11:15:53 Necktie Centralizing Machine Operator Date: 11/20/2021 17:11:16 Dictated By: BENJI JUDGE DO
== END 2021-11-20 11:05 | disposition home or self-care (01) ==
LOC: ENDO 08:04
PROVIDERS: ATTEND Surgery
DX: Z12.11 Encounter for screening for malignant neoplasm of colon (principal); K91.89 Other postprocedural complications and disorders of digestive system; D12.5 Benign neoplasm of sigmoid colon; K63.5 Polyp of colon; K21.9 Gastro-esophageal reflux disease without esophagitis; I51.9 Heart disease, unspecified; F17.210 Nicotine dependence, cigarettes, uncomplicated; F17.220 Nicotine dependence, chewing tobacco, uncomplicated; Z90.89 Acquired absence of other organs; Z85.038 Personal history of other malignant neoplasm of large intestine; Z83.3 Family history of diabetes mellitus
CPT/HCPCS: 88305

== ENCOUNTER 2021-12-21 09:46 | Outpatient (RCR) | payer BC | END 2021-12-24 | disposition home or self-care (01) | LOC: ONC 09:46 | PROVIDERS: ATTEND Internal Medicine Hematology & Oncology | DX: Z45.2 Encounter for adjustment and management of vascular access device (principal); C18.6 Malignant neoplasm of descending colon; D69.6 Thrombocytopenia, unspecified; D64.9 Anemia, unspecified; Z86.59 Personal history of other mental and behavioral disorders; Z80.9 Family history of malignant neoplasm, unspecified ==

== ENCOUNTER 2022-03-14 14:09 | Outpatient (RCR) | payer BC ==
[2022-03-14 14:44] LABS: BASOPHILS # (AUTO) 0.1 10^3/uL (0.0-0.1); BASOPHILS % (AUTO) 1 % (0-10); EOSINOPHILS # (AUTO) 0.2 10^3/uL (0.0-0.3); EOSINOPHILS % (AUTO) 3 % (0-10); HEMATOCRIT 40 % (40-54); HEMOGLOBIN 13.1 g/dL (13.3-17.7); LYMPHOCYTES % (AUTO) 29 % (12-44); MEAN CORPUSCULAR HEMOGLOBIN 29 pg (25-34); MEAN CORPUSCULAR HGB CONC 33 g/dL (32-36); MEAN CORPUSCULAR VOLUME 88 fL (80-99); MEAN PLATELET VOLUME 9.3 fL (9.0-12.2); MONOCYTES # (AUTO) 0.5 10^3/uL (0.0-1.0); MONOCYTES % (AUTO) 7 % (0-12); NEUTROPHILS % (AUTO) 60 % (42-75); PLATELET COUNT 167 10^3/uL (130-400); WHITE BLOOD COUNT 6.6 10^3/uL (4.3-11.0)
[2022-03-14 15:06] LABS: ALBUMIN 4.4 GM/DL (3.2-4.5); BILIRUBIN,TOTAL 0.9 MG/DL (0.1-1.0); CALCIUM 9.7 MG/DL (8.5-10.1); CREATININE SERUM 0.91 MG/DL (0.60-1.30); POTASSIUM 4.1 MMOL/L (3.6-5.0); TOTAL PROTEIN 7.2 GM/DL (6.4-8.2)
== END 2022-03-23 | disposition home or self-care (01) ==
LOC: ONC 14:09
PROVIDERS: ATTEND Internal Medicine Hematology & Oncology
DX: Z45.2 Encounter for adjustment and management of vascular access device (principal); C18.6 Malignant neoplasm of descending colon; D69.6 Thrombocytopenia, unspecified; R94.5 Abnormal results of liver function studies; Z86.59 Personal history of other mental and behavioral disorders; Z80.9 Family history of malignant neoplasm, unspecified
CPT/HCPCS: 80053; 85025; G0463; 36591; 99213

== ENCOUNTER → 2022-04-15 | Outpatient (CLI) | payer BC ==
--- NOTE | 2022-04-16 08:48 | Diagnostic Imaging Report ---
INDICATION: Adenocarcinoma of the colon, restaging. Serum blood glucose level at time of injection 103 mg/dL. Patient was administered 15.2 mCi F-18 FDG intravenously in the left hand and PET imaging was performed from the top of skull to mid thighs. Noncontrast CT was also performed for attenuation correction and anatomic correlation. No prior PET/CT studies are available for comparison. There is symmetric activity throughout the brain. Soft tissues of the neck are unremarkable. No suspicious hypermetabolism is identified. No mediastinal or hilar hypermetabolism is identified. No pulmonary parenchymal hypermetabolism is detected. There is physiologic activity throughout the gastrointestinal and genitourinary tracts of abdomen and pelvis. No suspicious hypermetabolism is detected. The patient does have a right-sided pelvic kidney. IMPRESSION: Unremarkable PET/CT study. No suspicious hypermetabolism is detected. Dictated by: Dictated on workstation # [id number]
== END ==
LOC: RAD 04-01 08:15
PROVIDERS: ATTEND Internal Medicine Hematology & Oncology
DX: C18.9 Malignant neoplasm of colon, unspecified (principal)
CPT/HCPCS: 78815; A9552

== ENCOUNTER 2022-04-17 14:07 | Outpatient (RCR) | payer BC | END 2022-04-23 | disposition home or self-care (01) | LOC: ONC 14:07 | PROVIDERS: ATTEND Internal Medicine Hematology & Oncology | DX: C18.9 Malignant neoplasm of colon, unspecified (principal) | CPT/HCPCS: 99213 ==

== ENCOUNTER 2022-06-13 10:45 | Outpatient (RCR) | payer BC | END 2022-06-23 | disposition home or self-care (01) | LOC: ONC 10:45 | PROVIDERS: ATTEND Internal Medicine Hematology & Oncology | DX: Z45.2 Encounter for adjustment and management of vascular access device (principal); C18.9 Malignant neoplasm of colon, unspecified | CPT/HCPCS: 96523 ==

== ENCOUNTER 2022-10-21 08:56 | Outpatient (RCR) | payer BC ==
[2022-10-21 09:39] LABS: BASOPHILS # (AUTO) 0.1 10^3/uL (0.0-0.1); BASOPHILS % (AUTO) 1 % (0-10); EOSINOPHILS # (AUTO) 0.2 10^3/uL (0.0-0.3); EOSINOPHILS % (AUTO) 2 % (0-10); HEMATOCRIT 47 % (40-54); HEMOGLOBIN 15.7 g/dL (13.3-17.7); LYMPHOCYTES % (AUTO) 28 % (12-44); MEAN CORPUSCULAR HEMOGLOBIN 30 pg (25-34); MEAN CORPUSCULAR HGB CONC 34 g/dL (32-36); MEAN CORPUSCULAR VOLUME 88 fL (80-99); MEAN PLATELET VOLUME 9.1 fL (9.0-12.2); MONOCYTES # (AUTO) 0.4 10^3/uL (0.0-1.0); MONOCYTES % (AUTO) 6 % (0-12); NEUTROPHILS # (AUTO) 4.6 10^3/uL (1.8-7.8); NEUTROPHILS % (AUTO) 63 % (42-75); PLATELET COUNT 196 10^3/uL (130-400); WHITE BLOOD COUNT 7.3 10^3/uL (4.3-11.0)
[2022-10-21 09:55] LABS: ALBUMIN 4.5 GM/DL (3.2-4.5); BILIRUBIN,TOTAL 0.7 MG/DL (0.1-1.0); CALCIUM 9.7 MG/DL (8.5-10.1); CREATININE SERUM 0.97 MG/DL (0.60-1.30); POTASSIUM 4.3 MMOL/L (3.6-5.0); TOTAL PROTEIN 7.4 GM/DL (6.4-8.2)
== END 2022-10-23 | disposition home or self-care (01) ==
LOC: ONC 08:56
PROVIDERS: ATTEND Internal Medicine Hematology & Oncology
DX: C18.9 Malignant neoplasm of colon, unspecified (principal); D64.9 Anemia, unspecified; D69.6 Thrombocytopenia, unspecified; R16.1 Splenomegaly, not elsewhere classified; R74.01 Elevation of levels of liver transaminase levels; Z87.898 Personal history of other specified conditions
CPT/HCPCS: 80053; 82378; 84153; 85025; G0463; 36415; 99213

== ENCOUNTER → 2022-12-05 | Outpatient (CLI) | payer BC ==
[~2022-12-05] MED LIST changes: +CATHETER FLUSH 10 ML SYR IV PRN; +HOLD METFORMIN - RECEIVED CONTRAST 20 ML VIAL IV SCH; +IOHEXOL 350 MG/ML 100 ML (OMNIPAQUE 350) VIAL IV ONE; +NS 100 ML (IVPB) BAG IV ONE
--- NOTE | 2022-12-05 13:03 | Diagnostic Imaging Report ---
PROCEDURE: CT chest, abdomen, and pelvis with contrast. TECHNIQUE: Multiple contiguous axial images were obtained through the chest, abdomen, and pelvis after the administration of intravenous contrast. Auto Exposure Controls were utilized during the CT exam to meet ALARA standards for radiation dose reduction. INDICATION: Colon carcinoma, follow-up. COMPARISON: Correlation is made with prior CT from 08/07/2021. FINDINGS: CT CHEST: The right chest wall port has the tip terminating at the SVC-right atrial junction. No axillary lymphadenopathy is detected. No mediastinal or hilar lymphadenopathy is detected. No pericardial or pleural fluid is detected. The semisolid density noted in the left lower lobe on prior study is no longer visualized. This may represent an infiltrate that has cleared. No pulmonary nodule or mass is detected. IMPRESSION: 1. No evidence of thoracic lymphadenopathy or pulmonary metastatic disease. Groundglass semisolid density in the left lower lobe has resolved. CT ABDOMEN AND PELVIS: No focal liver mass is detected. Gallbladder is unremarkable. There is no biliary ductal dilatation. The pancreas is unremarkable. Spleen is now normal in size at 12 cm. No adrenal mass is detected. Lower pole left renal cyst measures 5.0 cm compared with 4.3 cm. Right pelvic kidney is unremarkable. Aorta is nonaneurysmal. No central retroperitoneal or mesenteric lymphadenopathy is seen. The small and large bowel loops are normal in caliber. Postop changes in the region of the splenic flexure are noted. No free fluid is seen. No fluid collection is identified. No pelvic lymphadenopathy is detected. The bladder is decompressed. Prostate is unremarkable. The bony structures are nonacute. IMPRESSION: 1. No evidence of abdominal or pelvic lymphadenopathy or metastatic disease. 2. Normal-sized spleen. Dictated by: Dictated on workstation # [id number]
== END ==
LOC: RAD 11:20
PROVIDERS: ATTEND Internal Medicine Hematology & Oncology
DX: C18.9 Malignant neoplasm of colon, unspecified (principal)
CPT/HCPCS: 71260; 74177

== ENCOUNTER 2022-12-11 09:18 | Outpatient (RCR) | payer BC ==
[~2022-12-11 09:18] MED LIST changes: -CATHETER FLUSH 10 ML SYR IV PRN; -HOLD METFORMIN - RECEIVED CONTRAST 20 ML VIAL IV SCH; -IOHEXOL 350 MG/ML 100 ML (OMNIPAQUE 350) VIAL IV ONE; -NS 100 ML (IVPB) BAG IV ONE
[2022-12-11 09:34] LABS: BASOPHILS # (AUTO) 0.1 10^3/uL (0.0-0.1); BASOPHILS % (AUTO) 1 % (0-10); EOSINOPHILS # (AUTO) 0.1 10^3/uL (0.0-0.3); EOSINOPHILS % (AUTO) 2 % (0-10); HEMATOCRIT 46 % (40-54); HEMOGLOBIN 15.4 g/dL (13.3-17.7); LYMPHOCYTES % (AUTO) 29 % (12-44); MEAN CORPUSCULAR HEMOGLOBIN 30 pg (25-34); MEAN CORPUSCULAR HGB CONC 33 g/dL (32-36); MEAN CORPUSCULAR VOLUME 89 fL (80-99); MEAN PLATELET VOLUME 8.9 fL (9.0-12.2); MONOCYTES # (AUTO) 0.4 10^3/uL (0.0-1.0); MONOCYTES % (AUTO) 6 % (0-12); NEUTROPHILS # (AUTO) 4.3 10^3/uL (1.8-7.8); NEUTROPHILS % (AUTO) 63 % (42-75); PLATELET COUNT 197 10^3/uL (130-400); WHITE BLOOD COUNT 6.9 10^3/uL (4.3-11.0)
[2022-12-11 10:07] LABS: ALBUMIN 4.5 GM/DL (3.2-4.5); CALCIUM 9.5 MG/DL (8.5-10.1); CREATININE SERUM 0.94 MG/DL (0.60-1.30); POTASSIUM 4.2 MMOL/L (3.6-5.0); TOTAL PROTEIN 7.4 GM/DL (6.4-8.2)
== END 2022-12-24 | disposition home or self-care (01) ==
LOC: ONC 09:18
PROVIDERS: ATTEND Internal Medicine Hematology & Oncology
DX: Z45.2 Encounter for adjustment and management of vascular access device (principal); C18.6 Malignant neoplasm of descending colon; D64.9 Anemia, unspecified; D69.6 Thrombocytopenia, unspecified; R16.1 Splenomegaly, not elsewhere classified; R74.01 Elevation of levels of liver transaminase levels; Z87.898 Personal history of other specified conditions
CPT/HCPCS: 80053; 85025; G0463; 36591; 99213

== ENCOUNTER 2023-03-21 09:09 | Outpatient (RCR) | payer BC | END 2023-03-23 | LOC: ONC 09:09 | PROVIDERS: ATTEND Internal Medicine Hematology & Oncology | DX: Z45.2 Encounter for adjustment and management of vascular access device (principal); C18.6 Malignant neoplasm of descending colon; D64.9 Anemia, unspecified; D69.6 Thrombocytopenia, unspecified; R16.1 Splenomegaly, not elsewhere classified; R94.5 Abnormal results of liver function studies; Z86.59 Personal history of other mental and behavioral disorders; Z80.9 Family history of malignant neoplasm, unspecified | CPT/HCPCS: 96523 ==

== ENCOUNTER 2023-06-16 09:00 | Outpatient (RCR) | payer BC ==
[2023-06-16 09:25] LABS: BASOPHILS # (AUTO) 0.1 10^3/uL (0.0-0.1); BASOPHILS % (AUTO) 1 % (0-10); EOSINOPHILS # (AUTO) 0.1 10^3/uL (0.0-0.3); EOSINOPHILS % (AUTO) 2 % (0-10); HEMATOCRIT 42 % (40-54); HEMOGLOBIN 14.3 g/dL (13.3-17.7); LYMPHOCYTES # (AUTO) 1.5 10^3/uL (1.0-4.0); LYMPHOCYTES % (AUTO) 25 % (12-44); MEAN CORPUSCULAR HEMOGLOBIN 31 pg (25-34); MEAN CORPUSCULAR HGB CONC 34 g/dL (32-36); MEAN CORPUSCULAR VOLUME 91 fL (80-99); MEAN PLATELET VOLUME 8.9 fL (9.0-12.2); MONOCYTES # (AUTO) 0.4 10^3/uL (0.0-1.0); MONOCYTES % (AUTO) 7 % (0-12); NEUTROPHILS % (AUTO) 65 % (42-75); PLATELET COUNT 171 10^3/uL (130-400); WHITE BLOOD COUNT 6.2 10^3/uL (4.3-11.0)
[2023-06-16 09:44] LABS: ALBUMIN 4.3 GM/DL (3.2-4.5); BILIRUBIN,TOTAL 0.8 MG/DL (0.1-1.0); CALCIUM 9.4 MG/DL (8.5-10.1); CREATININE SERUM 1.04 MG/DL (0.60-1.30); POTASSIUM 4.2 MMOL/L (3.6-5.0); TOTAL PROTEIN 7.1 GM/DL (6.4-8.2)
== END 2023-06-23 | disposition home or self-care (01) ==
LOC: ONC 09:00
PROVIDERS: ATTEND Internal Medicine Hematology & Oncology
DX: Z45.2 Encounter for adjustment and management of vascular access device (principal); C18.6 Malignant neoplasm of descending colon; D64.9 Anemia, unspecified; D69.6 Thrombocytopenia, unspecified; R16.1 Splenomegaly, not elsewhere classified; R74.01 Elevation of levels of liver transaminase levels; Z87.898 Personal history of other specified conditions
CPT/HCPCS: 80053; 82378; 85025

== ENCOUNTER → 2023-06-27 | Outpatient (CLI) | payer BC ==
[~2023-06-27] MED LIST changes: +HOLD METFORMIN - RECEIVED CONTRAST 20 ML VIAL IV SCH; +IOHEXOL 350 MG/ML 100 ML (OMNIPAQUE 350) VIAL IV ONE; +NS 100 ML (IVPB) BAG IV ONE
--- NOTE | 2023-06-27 11:05 | Diagnostic Imaging Report ---
PROCEDURE: CT chest, abdomen, and pelvis with contrast. TECHNIQUE: Multiple contiguous axial images were obtained through the chest, abdomen, and pelvis after the administration of intravenous contrast. Auto Exposure Controls were utilized during the CT exam to meet ALARA standards for radiation dose reduction. INDICATION: Follow-up colon carcinoma. COMPARISON: Correlation is made with prior CT from 12/05/2022. FINDINGS: CT CHEST: The right chest wall port has the tip at the SVC-right atrial junction. No axillary lymphadenopathy is detected. No mediastinal or hilar lymphadenopathy is detected. No pericardial or pleural fluid is detected. No pulmonary nodules, infiltrates or masses are identified. CT ABDOMEN AND PELVIS: Mild generalized low attenuation throughout the liver is noted, consistent with hepatic steatosis. No discrete liver mass is detected. The gallbladder is unremarkable. There is no biliary ductal dilatation. Pancreas and spleen are unremarkable. No adrenal mass is identified. The left kidney contains 5.1 cm cyst in the lower pole. Patient does have a pelvic right kidney. No calculi or hydronephrosis is identified. Aorta is nonaneurysmal. There is a retroaortic left renal vein, normal anatomic variant. No central retroperitoneal or mesenteric lymphadenopathy is identified. There are postop changes of the descending colon. The colonic and small bowel loops are normal in caliber without evidence of obstruction. There is no free fluid or fluid collection. No definite iliac or inguinal lymphadenopathy is identified. The bladder is unremarkable. Prostate is unremarkable. There is a small fat-containing left inguinal hernia. No definite osteolytic or osteoblastic lesions are identified. IMPRESSION: 1. Continued stable CT of the chest, abdomen, and pelvis since examination from 12/05/2022. No thoracic, abdominal or pelvic lymphadenopathy or evidence of metastatic disease is detected. Dictated by: Dictated on workstation # [id number]
== END ==
LOC: RAD 09:06
PROVIDERS: ATTEND Internal Medicine Hematology & Oncology
DX: C18.9 Malignant neoplasm of colon, unspecified (principal)
CPT/HCPCS: 71260; 74177

== ENCOUNTER 2023-07-02 09:18 | Outpatient (RCR) | payer BC ==
[~2023-07-02 09:18] MED LIST changes: -HOLD METFORMIN - RECEIVED CONTRAST 20 ML VIAL IV SCH; -IOHEXOL 350 MG/ML 100 ML (OMNIPAQUE 350) VIAL IV ONE; -NS 100 ML (IVPB) BAG IV ONE
== END 2023-07-24 | disposition home or self-care (01) ==
LOC: ONC 09:18
PROVIDERS: ATTEND Internal Medicine Hematology & Oncology
DX: C18.6 Malignant neoplasm of descending colon (principal); D64.9 Anemia, unspecified; D69.6 Thrombocytopenia, unspecified; R16.1 Splenomegaly, not elsewhere classified; R74.01 Elevation of levels of liver transaminase levels; Z87.898 Personal history of other specified conditions
CPT/HCPCS: 99214

== ENCOUNTER → 2023-07-24 | Outpatient (CLI) | payer BC ==
--- NOTE | 2023-07-24 10:14 | Diagnostic Imaging Report ---
PROCEDURE: US Gallbladder. TECHNIQUE: Multiple real-time grayscale images were obtained over the right upper quadrant in various projections. INDICATION: Dyspepsia and back pain. Liver is enlarged at approximately 20 cm. There is increased echogenicity throughout the liver consistent with hepatic steatosis. The portal vein is patent and shows normal direction of flow. No liver mass is identified. Gallbladder is without stones or sludge. No wall thickening or biliary ductal dilatation is identified. The pancreas and aorta were obscured by bowel gas. The proximal IVC appears patent. Right kidney is 11.2 cm in length. No definite calculi or hydronephrosis is identified. There is no ascites. IMPRESSION: 1. Hepatomegaly and hepatic steatosis. 2. No evidence of cholelithiasis or acute cholecystitis. Dictated by: Dictated on workstation # [id number]
== END ==
LOC: RAD 08:12
PROVIDERS: ATTEND Family Medicine
DX: K76.0 Fatty (change of) liver, not elsewhere classified (principal); R16.0 Hepatomegaly, not elsewhere classified; M54.9 Dorsalgia, unspecified
CPT/HCPCS: 76705

== ENCOUNTER 2023-09-26 10:05 | Outpatient (RCR) | payer BC | END 2023-10-23 | disposition home or self-care (01) | LOC: ONC 10:05 | PROVIDERS: ATTEND Internal Medicine Hematology & Oncology | DX: Z45.2 Encounter for adjustment and management of vascular access device (principal); C18.6 Malignant neoplasm of descending colon; K21.9 Gastro-esophageal reflux disease without esophagitis; D64.9 Anemia, unspecified; D69.6 Thrombocytopenia, unspecified; R16.1 Splenomegaly, not elsewhere classified; R74.01 Elevation of levels of liver transaminase levels; Z87.898 Personal history of other specified conditions | CPT/HCPCS: 96523 ==

== ENCOUNTER → 2023-10-02 | Outpatient (CLI) | payer BC ==
[~2023-10-02] MED LIST changes: +CATHETER FLUSH 10 ML SYR IVP PRN
--- NOTE | 2023-10-02 12:21 | Diagnostic Imaging Report ---
INDICATION: Right upper quadrant pain COMPARISON: 07/24/2023 TECHNIQUE: Anterior scintigraphic imaging of the abdomen was performed after the intravenous administration of 5.3 mCi Tc-99m Choletec. FINDINGS: The upper abdomen was imaged for 60 minutes with the gamma camera. There is prompt homogeneous uptake of radiopharmaceutical by the liver. There is activity in the common duct and gallbladder by 20 minutes. Small bowel activity is seen by 25 minutes. After 60 minutes, the patient received 8 oz of ensure by mouth. After 60 minutes, the gallbladder ejection fraction was calculated to be 2% which is abnormal. IMPRESSION: 1. Patent common and cystic bile ducts. 2. Gallbladder dysfunction is present as the gallbladder ejection fraction is only 2%. Dictated by: Dictated on workstation # [id number]
== END ==
LOC: CARD 08:15
PROVIDERS: ATTEND Family Medicine
DX: K82.8 Other specified diseases of gallbladder (principal)
CPT/HCPCS: 78227; A9537

== ENCOUNTER → 2023-10-07 | Outpatient (CLI) | payer BC ==
[~2023-10-07] MED LIST changes: -CATHETER FLUSH 10 ML SYR IVP PRN
== END | disposition home or self-care (01) ==
LOC: PREOP 05:32
PROVIDERS: ATTEND Surgery
DX: Z01.818 Encounter for other preprocedural examination (principal)